=== PATIENT | male | born 1985 | race Caucasian/White ===

== ENCOUNTER → 2019-03-14 09:39 | Outpatient (CLI) | payer OTHER, SELFPAY ==
--- NOTE | 2019-03-14 09:42 | XR_ITS ---
PROCEDURE: XR CHEST 2V CLINICAL HISTORY: smoker Cough and congestion COMPARISON: CXR CHEST(2 VIEWS-NOT PORTABLE) from 02/27/2014 FINDINGS: The cardiomediastinal silhouette and pulmonary vascularity are within normal limits. The lungs are clear without infiltrates, suspicious nodules, or pleural effusions. There is an azygos fissure is a normal variant. No acute bony findings IMPRESSION: No acute findings. Dictated by: Kwabena So MD 03/14/2019 12:08 Electronically signed by Kwabena So MD in [place] 03/14/2019 12:08
--- NOTE | 2019-03-14 09:42 | XR_ITS ---
PROCEDURE: XR HIP RT 2-3V W/PELVIS CLINICAL INDICATION: pain Reported soft tissue mass of the right hip laterally COMPARISON: ABDPELW/O CT ABD PELVIS W/O CONTRAST from 10/25/2012 FINDINGS: The a BB is placed on the palpable abnormality. No radiographic abnormality apparent at this area. CT or MRI may be of further value if there is indeed a palpable abnormality. The right hip itself has an unremarkable bony appearance other than a small bone island in the subcapital region. There are 3 small sclerotic foci of the left supra-acetabular area consistent with small bone islands which were present on 10/25/2012. IMPRESSION: No acute finding. If there indeed a palpable abnormality in the right hip. Then CT or MRI may be of further value Dictated by: Kwabena So MD 03/14/2019 12:02 Electronically signed by Kwabena So MD in [place] 03/14/2019 12:02
[2019-03-14 10:46] LABS: Basophils % 0.5 % (0.1-2.0); Eosinophils # 0.1 K/mm3 (0.0-0.4); Hematocrit 50.6 % (42.0-52.0); Hemoglobin 16.8 g/dL (14.1-18.0); Lymphocytes # 1.4 K/mm3 (0.7-4.5); Lymphocytes % 25.6 % (10-50); Mean Corpuscular HGB Conc 33.2 g/dL (31.8-35.4); Mean Corpuscular Hemoglobin 33.8 pg (27.0-31.2); Mean Corpuscular Volume 101.8 fl (80-94); Mean Platelet Volume 7.8 fl (7.4-10.4); Monocytes # 0.3 K/mm3 (0.1-1.0); Monocytes % 5.6 % (1.7-9.3); Neutrophils # 3.5 K/mm3 (1.8-7.8); Neutrophils % 66.3 % (37.0-80.0); Platelet Count 327 K/mm3 (142-424); Red Blood Count 4.97 M/mm3 (4.60-6.20); Red Cell Distribution Width 12.9 % (11.5-17.5); White Blood Count 5.3 K/mm3 (4.8-10.8)
[2019-03-14 12:16] LABS: Erythrocyte Sedimentation Rate 8 mm/hr (0-15)
[2019-03-14 13:03] LABS: Alanine Aminotransferase 29 U/L (12-78); Albumin Level 4.6 gm/dL (3.4-5.0); Albumin/Globulin Ratio 1.4 (1.1-1.8); Alkaline Phosphatase 89 U/L (46-116); Anion Gap 11.2 mEq/L (5-15); Aspartate Amino Transferase 25 U/L (15-37); Bilirubin,Total 2.3 mg/dL (0.2-1.0); Blood Urea Nitrogen 11 mg/dL (7-18); Calcium 9.7 mg/dL (8.5-10.1); Carbon Dioxide 30 mmol/L (21.0-32.0); Chloride 102 mmol/L (98-107); Chol/HDL Ratio 6.4 (1-3.5); Cholesterol 256 mg/dL (140-200); Creatinine,Serum 0.86 mg/dL (0.70-1.30); Estimated Glomerular Filt Rate 103 ml/min (>60); GFR (African American) 125 ML/MIN (>60); Globulin 3.4 gm/dl (1.3-3.2); Glucose 65 mg/dL (74-106); HDL Cholesterol 40 mg/dL (27-67); LDL Cholesterol 200 mg/dL (0-130); Potassium 4.2 mmoL/L (3.5-5.1); Sodium 139 mmol/L (136-145); Thyroid Stimulating Hormone 1.95 uIU/ml (0.358-3.740); Triglycerides 78 mg/dL (30-200); VLDL Cholesterol 16 mg/dL (0-40)
[2019-03-14 13:04] LABS: C-Reactive Protein < 0.2 mg/dL (0.0-0.9)
[2019-03-14 16:36] LABS: Amphetamine/Metha Screen,Urine Negative ng/mL (<1000); Barbiturates Screen,Urine Negative ng/mL (<200); Benzodiazepines Screen,Urine Negative ng/mL (<200); Cannabinoid Screen,Urine Negative ng/mL (<50); Cocaine Screen,Urine Negative ng/mL (<300); Methadone Screen,Urine Negative ng/mL (<300); Opiate Screen,Urine Negative ng/mL (<300); Phencyclidine Screen,Urine Negative ng/mL (<25)
[2019-03-15 09:19] LABS: RA Latex Turbid. 10.2 IU/mL (0.0-13.9); Vitamin D 25 Hydroxy 32.9 ng/mL (30.0-100.0)
[2019-03-15 12:09] LABS: Anti-Centromere B Antibodies <0.2 AI (0.0-0.9); Anti-Jo-1 <0.2 AI (0.0-0.9); Anti-Smith Antibody <0.2 AI (0.0-0.9); Antichromatin Antibodies <0.2 AI (0.0-0.9); Antiscleroderma-70 Antibodies <0.2 AI (0.0-0.9); RNP Antibodies <0.2 AI (0.0-0.9); Sjogren's Anti-SS-A <0.2 AI (0.0-0.9); Sjogren's Anti-SS-B <0.2 AI (0.0-0.9)
[2019-03-15 13:17] LABS: Anti-DNA (DS) Ab Qn <1 IU/mL (0-9)
== END ==
PROVIDERS: PCP Emergency Medicine; Visit Provider Nurse Practitioner Family
DX: F17.200 Nicotine dependence, unspecified, uncomplicated (principal); M25.50 Pain in unspecified joint; R53.83 Other fatigue; Z79.899 Other long term (current) drug therapy
CPT/HCPCS: 36415; 71046; 73502; 80053; 80061; 80305; 82652; 84439; 84443; 85025; 85651; 86140; 86225; 86235; 86431

== ENCOUNTER → 2019-03-21 08:45 | Outpatient (CLI) | payer OTHER, SELFPAY ==
[2019-03-25 18:02] LABS: Free Valproic Acid (Depakote) 1.9
== END ==
PROVIDERS: Visit Provider Nurse Practitioner Family
DX: R56.9 Unspecified convulsions (principal)
CPT/HCPCS: 36415; 80165

== ENCOUNTER → 2019-06-02 14:28 | Outpatient (CLI) | payer OTHER, SELFPAY ==
[2019-06-02 16:15] LABS: Valproic Acid, (Depakene) 73.4 ug/mL (50-100)
== END ==
PROVIDERS: Visit Provider Nurse Practitioner Family
DX: R56.9 Unspecified convulsions (principal); Z51.81 Encounter for therapeutic drug level monitoring
CPT/HCPCS: 36415; 80164

== ENCOUNTER 2019-08-11 17:24 | Emergency (ER) | payer OTHER, SELFPAY ==
[2019-08-11 17:25] VITALS: BP 129/72; PULSE 68; RESP 19; TEMP 36.6; O2SAT 99; BMI 26.8
--- NOTE | 2019-08-11 17:39 | CT_ITS ---
PROCEDURE: CT HEAD/BRAIN WO CON CLINICAL INDICATION: numbness Left-sided numbness, lightheaded COMPARISON: No exams were available for comparison TECHNIQUE: Axial images obtained. All CT scans at the facility use one or more dose reduction, viz: automated exposure control, ma/kV adjustment per patient size (including targeted exams where dose is matched to indication, i.e. head), or iterative reconstruction technique. FINDINGS: No midline shift, mass effect, intracranial hemorrhage, hydrocephalus, or extra-axial fluid collection is evident. There is mild bilateral cerebellar ectopia which may be better evaluated with MRI with sagittal and coronal imaging. The calvarium has an unremarkable appearance. No mastoid effusion. There is mild mucosal thickening of the ethmoid sinuses. IMPRESSION: 1. No acute intracranial findings. 2. Mild bilateral cerebellar ectopia which may be better evaluated with multi planar MRI Dictated by: Kwabena So MD 08/11/2019 20:39 Electronically signed by Kwabena So MD in [place] 08/11/2019 20:39
--- NOTE | 2019-08-11 17:43 | HMH.EDGENADL ---
ED Disposition Clinical Impression: Arm paresthesia, left Disposition: Home Health Service Condition on Discharge: Good Instructions: DI for Numbness/tingling Additional Instructions: Return to the emergency room if numbness returns or if new symptoms such as chest pain, shortness of breath, vision or speech difficulty, weakness. Follow-up with your primary care provider, call tomorrow to arrange appointment. Referrals: Reddy Ott MD [Primary Care Provider] - Forms: Work/School Release - Critical Care Critical Care Time: No Attestation: On , the high probability of a clinically significant, sudden or life threatening deterioration of the following system(s) required my full and direct attention, intervention and personal management. The time I documented below is in addition to time spent performing reported procedures but includes the following listed in this critical care notation. Medical Decision Making - Nael Inquiry Pt receiving controlled substance: No Vital Signs: 08/11/19 17:25 Temperature 97.8 F Temperature Source Oral Pulse Rate [Radial] 68 Respiratory Rate 19 Blood Pressure [Right Arm] 129/72 Blood Pressure Mean [Right Arm] 91 Blood Pressure Source [Right Arm] Automatic Cuff Blood Pressure Position [Right Arm] Sitting 02 Sat by Pulse Oximetry 99 Oxygen Delivery Method Room Air - Lab Data Lab Results 08/11/19 17:49: WBC 5.3, RBC 4.61, Hgb 15.7, Hct 45.3, MCV 98.3 H, MCH 34.0 H, MCHC 34.6, RDW 12.6, Plt Count 272, MPV 8.0, Neut % (Auto) 57.3, Lymph % (Auto) 33.9, [place] % (Auto) 5.3, Eos % (Auto) 2.8, Baso % (Auto) 0.7, Neut # (Auto) 3.1, Lymph # (Auto) 1.8, [place] # (Auto) 0.3, Eos # (Auto) 0.2, Baso # (Auto) 0.0 08/11/19 17:49: Sodium 140, Potassium 3.9, Chloride 103, Carbon Dioxide 30, Anion Gap 10.9, BUN 9, Creatinine 0.80, Estimated Creat Clear 168, Estimated GFR 112, Est GFR ( Amer) 136, Glucose 87, Calcium 9.3, Total Bilirubin 1.4 H, AST 28, ALT 20, Alkaline Phosphatase 57, Troponin I < 0.01, Total Protein 7.4, Albumin 4.5, Globulin 2.9, Albumin/Globulin Ratio 1.6 Result diagrams: 08/11/19 17:49 08/11/19 17:49 Orders (Tests/Meds): ORDERS Category Date Time Status CT head/brain wo con Stat Cat Scan 08/11/19 17:39 Taken Cervical spine XR 3 views [XR cervical spine 3V] Stat Exams 08/11/19 18:16 Taken Chest XR 2 view (NOT portable) [XR chest 2V] Stat Exams 08/11/19 17:47 Taken Troponin I Q3H Lab 08/11/19 20:45 Ordered Troponin I Q3H Lab 08/11/19 23:45 Ordered - Radiology Data #1 Image(s): C-Spine Image Reviewed: Yes I reviewed the patient's radiology image Preliminary Findings: Normal/NAD - CT Data CT Scan: Head Time Received: 18:27 ([facility] fax) ED CT Reviewed: Yes: I have viewed the radiologist's interpretation Findings Narrative: No evidence of an acute infarct - ECG Data Tracing #1 EKG interpreted by Tommie Mirza MD: Rhythm: sinus bradycardia Rate: 58 [place]: normal Ectopy: none Conduction: normal ST Segment Changes: Nonspecific T Wave Changes: Nonspecific Q Waves: none No prior EKGs available for comparison. Medical Decision Narrative: Neg MRI c-spine 2013. 7:00 PM: Given the patient's anatomic distribution of paresthesias, I am most suspicious of cervical radiculopathy. Without chest pain, shortness of breath, nausea, or diaphoresis, I doubt cardiac source and despite the patient's history of a heart attack I cannot find any documentation of such and it seems unlikely given that he did not have a cardiac cath. However, I did discuss further evaluation with a second troponin, but the patient declines and wants to be discharged home. He is remained asymptomatic. General Adult HPI - General Chief complaint: Syncope Stated complaint: Left side numbness Time Seen by Provider: 08/11/19 17:50 Mode of Arrival: Ambulatory Limitations: No Limitations Description of Symptoms (Recalled from ER Triage Doc. by RN): State
--- NOTE | 2019-08-11 17:47 | XR_ITS ---
PROCEDURE: XR CHEST 2V CLINICAL HISTORY: L side numb episode Dizziness, left-sided numbness COMPARISON: CXR CHEST(2 VIEWS-NOT PORTABLE) from 02/27/2014 XR CHEST 2V from 03/14/2019 XR CHEST 2V from 04/16/2019 FINDINGS: The cardiomediastinal silhouette and pulmonary vascularity are within normal limits. The lungs are clear without infiltrates, suspicious nodules, or pleural effusions. There is an azygos fissure as a normal variant. No acute bony anomalies IMPRESSION: No acute findings. Dictated by: Kwabena So MD 08/11/2019 19:51 Electronically signed by Kwabena So MD in [place] 08/11/2019 19:51
--- NOTE | 2019-08-11 17:48 | ECG_ITS ---
APPROVED REPORT Exam: Resting ECG HR:63 bpm ECG Measurements Heart Rate 63 AXES CO 112 P 30 QRSd 88 QRS 20 QT 424 T 39 QTc 433 <Conclusion> Normal sinus rhythm Nonspecific T wave abnormality Abnormal ECG Electronically signed by : Melquiades Ahuja, 08/13/2019 06:48:30
[2019-08-11 17:57] LABS: Basophils % 0.7 % (0.1-2.0); Eosinophils # 0.2 K/mm3 (0.0-0.4); Eosinophils % 2.8 % (0.1-12.0); Hematocrit 45.3 % (42.0-52.0); Hemoglobin 15.7 g/dL (14.1-18.0); Lymphocytes # 1.8 K/mm3 (0.7-4.5); Lymphocytes % 33.9 % (10-50); Mean Corpuscular HGB Conc 34.6 g/dL (31.8-35.4); Mean Corpuscular Volume 98.3 fl (80-94); Monocytes # 0.3 K/mm3 (0.1-1.0); Monocytes % 5.3 % (1.7-9.3); Neutrophils # 3.1 K/mm3 (1.8-7.8); Neutrophils % 57.3 % (37.0-80.0); Platelet Count 272 K/mm3 (142-424); Red Blood Count 4.61 M/mm3 (4.60-6.20); Red Cell Distribution Width 12.6 % (11.5-17.5); White Blood Count 5.3 K/mm3 (4.8-10.8)
[2019-08-11 18:02] LABS: Chloride 103 mmol/L (98-107); Potassium 3.9 mmoL/L (3.5-5.1); Sodium 140 mmol/L (136-145)
[2019-08-11 18:04] LABS: Alanine Aminotransferase 20 U/L (12-78); Alkaline Phosphatase 57 U/L (38-126); Anion Gap 10.9 mEq/L (5-15); Aspartate Amino Transferase 28 U/L (17-59); Bilirubin,Total 1.4 mg/dl (0.2-1.3); Blood Urea Nitrogen 9 mg/dl (9-20); Carbon Dioxide 30 mmol/L (22.0-30.0); Creatinine Clearance Estimated 168 mL/min (50-200); Estimated Glomerular Filt Rate 112 ml/min (>60); GFR (African American) 136 ML/MIN (>60)
[2019-08-11 18:05] LABS: Albumin Level 4.5 g/dl (3.5-5.0); Albumin/Globulin Ratio 1.6 (1.1-1.8); Calcium 9.3 mg/dl (8.4-10.2); Globulin 2.9 g/dL (1.3-3.2); Glucose 87 mg/dl (74-100); Total Protein,Serum 7.4 g/dl (6.3-8.2)
--- NOTE | 2019-08-11 18:16 | XR_ITS ---
PROCEDURE: XR CERVICAL SPINE 3V CLINICAL INDICATION: L arm and chest numbness Left arm pain and numbness COMPARISON: No exams were available for comparison FINDINGS: There is straightening/reversal of the normal lordosis which may be due to patient positioning or muscle spasm. The disc spaces are well preserved. No fracture or dislocation. No lytic or blastic change. No evidence of cervical rib or prevertebral soft tissue swelling. IMPRESSION: There is reversal of the normal lordosis which may be due to patient positioning or muscle spasm. Otherwise negative Dictated by: Kwabena So MD 08/11/2019 20:33 Electronically signed by Kwabena So MD in [place] 08/11/2019 20:33
[2019-08-11 18:21] LABS: Troponin I < 0.01 ng/ml (0.00-0.034)
[2019-08-11 19:14] VITALS: BP 122/66; PULSE 61; RESP 17; TEMP 36.7; O2SAT 97
== END 2019-08-11 19:19 | disposition home health service (06) ==
PROVIDERS: Emergency Provider Emergency Medicine; PCP Emergency Medicine
DX: R20.2 Paresthesia of skin (principal); F41.8 Other specified anxiety disorders; J44.9 Chronic obstructive pulmonary disease, unspecified; R56.9 Unspecified convulsions; Z88.0 Allergy status to penicillin; Z88.6 Allergy status to analgesic agent; Z88.8 Allergy status to other drugs, medicaments and biological substances
CPT/HCPCS: 70450; 71046; 72040; 80053; 84484; 85025; 93005; 99283

== ENCOUNTER 2019-11-08 12:21 | Emergency (ER) | payer OTHER, SELFPAY ==
[2019-11-08 12:30] VITALS: BP 117/73; PULSE 60; RESP 16; TEMP 36.6; O2SAT 100; BMI 23.8
--- NOTE | 2019-11-08 13:12 | HMH.EDGENADL ---
ED Disposition Clinical Impression: Diarrhea of presumed infectious origin, Food sensitivity with gastrointestinal symptoms Disposition: Home, Self-Care Condition on Discharge: Good Instructions: Diarrhea Referrals: Reddy Ott MD [Primary Care Provider] - Time of Disposition: 14:06 - Critical Care Critical Care Time: No Attestation: On 11/08/19, the high probability of a clinically significant, sudden or life threatening deterioration of the following system(s) required my full and direct attention, intervention and personal management. The time I documented below is in addition to time spent performing reported procedures but includes the following listed in this critical care notation. Medical Decision Making - Medical Records Medical records reviewed: Yes: I reviewed the patient's medical records. - Nael Inquiry Pt receiving controlled substance: No Vital Signs: 11/08/19 12:30 Temperature 97.9 F Temperature Source Oral Pulse Rate [Right Brachial] 60 Respiratory Rate 16 Blood Pressure [Right Arm] 117/73 Blood Pressure Mean [Right Arm] 87 Blood Pressure Source [Right Arm] Automatic Cuff Blood Pressure Position [Right Arm] Sitting 02 Sat by Pulse Oximetry 100 Oxygen Delivery Method Room Air - Lab Data Lab Results 11/08/19 13:24: Sodium 138, Potassium 3.9, Chloride 101, Carbon Dioxide 28, Anion Gap 12.9, BUN 11, Creatinine 1.00, Estimated Creat Clear 120, Estimated GFR 87, Est GFR ( Amer) 105, Glucose 102 H, Calcium 9.4, Total Bilirubin 1.2, AST 29, ALT 17, Alkaline Phosphatase 77, Total Protein 7.4, Albumin 4.6, Globulin 2.8, Albumin/Globulin Ratio 1.6 Result diagrams: 11/08/19 13:24 Orders (Tests/Meds): ED MEDICATIONS Discontinued Medications Generic Name Dose Route Start Last Admin Trade Name Freq PRN Reason Stop Dose Admin Sodium Chloride 1,000 mls @ 999 mls/hr 11/08/19 13:00 11/08/19 13:19 Sod Chlor 0.9% 1000ml Bag IV 11/08/19 14:00 999 mls/hr .Q1H1M BEAR Administration Medical Decision Narrative: In summary this is a 33-year-old male presenting to the emergency department with generalized weakness and diarrhea. Patient is in no distress on arrival. Vital signs are stable. Differential diagnoses include inflammatory diarrhea, infectious diarrhea, food sensitivity. Diarrhea has been present for less than 24 hours. No current associated pain. Doubt acute surgical abdomen. Plan to obtain CBC, CMP. Patient given IV fluid bolus. Results are generally unremarkable. No electrolyte derangements. No acute kidney injury. Patient has not had any episodes of diarrhea while in the emergency department. Doubt infectious diarrhea. After IV fluids he was feeling much better. Counseled that he may take Tums or Pepto-Bismol at home. He should try a food elimination diet and follow-up with his primary care physician. May need repeat endoscopy. Given return precautions. Stable for discharge. General Adult HPI - General Chief complaint: Weakness Stated complaint: diarrhea Time Seen by Provider: 11/08/19 12:42 Mode of Arrival: Ambulatory Limitations: No Limitations Description of Symptoms (Recalled from ER Triage Doc. by RN): Diarrhea for 24 hours - History of Present Illness HPI narrative: 33-year-old male presenting to the emergency department with diarrhea and generalized weakness. Symptoms started last night. He had multiple episodes of lower abdominal cramping and watery diarrhea overnight. Pain has mostly resolved, but he now feels generally weak and fatigued. No focal numbness or weakness. No fevers or chills. No blood or mucus in his stool. He has lactose intolerance, and has had unremarkable colonoscopies in the past. He ate macaroni and cheese yesterday. Also ate tacos from a gas station. [place] bad almost immediately after that. He has taken Tums and Pepto-Bismol at home with minimal relief. - Related Data Home Medications Medicati
[2019-11-08 13:41] LABS: Alanine Aminotransferase 17 U/L (12-78); Albumin Level 4.6 g/dl (3.5-5.0); Albumin/Globulin Ratio 1.6 (1.1-1.8); Alkaline Phosphatase 77 U/L (38-126); Anion Gap 12.9 mEq/L (5-15); Aspartate Amino Transferase 29 U/L (17-59); Bilirubin,Total 1.2 mg/dl (0.2-1.3); Blood Urea Nitrogen 11 mg/dl (9-20); Calcium 9.4 mg/dl (8.4-10.2); Carbon Dioxide 28 mmol/L (22.0-30.0); Chloride 101 mmol/L (98-107); Creatinine Clearance Estimated 120 mL/min (50-200); Estimated Glomerular Filt Rate 87 ml/min (>60); GFR (African American) 105 ML/MIN (>60); Globulin 2.8 g/dL (1.3-3.2); Glucose 102 mg/dl (74-100); Potassium 3.9 mmoL/L (3.5-5.1); Sodium 138 mmol/L (136-145); Total Protein,Serum 7.4 g/dl (6.3-8.2)
[2019-11-08 14:21] VITALS: BP 132/74; PULSE 88; RESP 16; TEMP 36.6; O2SAT 98
== END 2019-11-08 14:22 | disposition home or self-care (01) ==
PROVIDERS: Emergency Provider Emergency Medicine; PCP Emergency Medicine
DX: R19.7 Diarrhea, unspecified (principal); T78.1XXA Other adverse food reactions, not elsewhere classified, initial encounter; F41.8 Other specified anxiety disorders; F31.9 Bipolar disorder, unspecified; E78.5 Hyperlipidemia, unspecified; J44.9 Chronic obstructive pulmonary disease, unspecified; F17.210 Nicotine dependence, cigarettes, uncomplicated; Z88.0 Allergy status to penicillin; Z88.8 Allergy status to other drugs, medicaments and biological substances; Z79.899 Other long term (current) drug therapy
CPT/HCPCS: 80053; 96365; 99282

== ENCOUNTER 2019-12-21 02:30 | Emergency (ER) | payer OTHER, SELFPAY ==
[2019-12-21 02:34] VITALS: BP 118/82; RESP 18; TEMP 36.6; O2SAT 98; BMI 24.4
--- NOTE | 2019-12-21 03:21 | CT_ITS ---
PROCEDURE: CT HEAD/BRAIN WO CON CLINICAL INDICATION: right sided numbness Right-sided numbness with tingling in right shoulder and right and right leg COMPARISON: CT CT HEAD/BRAIN WO CON from 08/11/2019 TECHNIQUE: Axial images obtained. All CT scans at the facility use one or more dose reduction, viz: automated exposure control, ma/kV adjustment per patient size (including targeted exams where dose is matched to indication, i.e. head), or iterative reconstruction technique. FINDINGS: No midline shift, mass effect, intracranial hemorrhage, hydrocephalus, or extra-axial fluid collection is evident. The calvarium has an unremarkable appearance. No mastoid effusion. There is mild opacification of the ethmoid sinuses. IMPRESSION: No acute intracranial finding Dictated by: Kwabena So MD 12/21/2019 05:53 Kwabena oS MD in [place] 12/21/2019 05:53
--- NOTE | 2019-12-21 03:22 | CT_ITS ---
PROCEDURE: CT CERVICAL SPINE WO CON CLINICAL INDICATION: right sided numbness Right upper extremity numbness and tingling COMPARISON: No exams were available for comparison TECHNIQUE: Axial images obtained with sagittal and coronal reformats. All CT scans at the facility use one or more dose reduction, viz: automated exposure control, ma/kV adjustment per patient size (including targeted exams where dose is matched to indication, i.e. head), or iterative reconstruction technique. Axial spiral CT scanning performed of the cervical spine beginning at the base of the skull and continuing to the upper T-spine. 3-D multiplanar reconstruction with 3-D manipulation of volumetric data set in image rendering was completed by the radiologist and/or technologist with the supervision of the radiologist on independent workstation. FINDINGS: Normal alignment. No fracture or dislocation. No lytic blastic change there is mild decrease in the disc space at C5-C6 and C6-C7 suggesting mild degenerative disc disease. No bony canal stenosis or significant hypertrophic change. Lung apices are clear. Scattered small nodes are present in the neck. IMPRESSION: No acute finding. Slight decrease in the disc space at C5-C6 and C6-C7 suggesting mild degenerative disc disease Dictated by: Kwabena So MD 12/21/2019 05:57 Kwabena So MD in [place] 12/21/2019 05:57
--- NOTE | 2019-12-21 03:22 | ECG_ITS ---
APPROVED REPORT Exam: Resting ECG HR:78 bpm ECG Measurements Heart Rate 78 AXES CA 112 P 65 QRSd 92 QRS 89 QT 376 T 58 QTc 428 <Conclusion> Normal sinus rhythm Nonspecific ST-T wave abnormalities Abnormal ECG Electronically signed by : David Noonan, 12/25/2019 13:08:38
--- NOTE | 2019-12-21 03:22 | XR_ITS ---
PROCEDURE: XR CHEST 2V CLINICAL HISTORY: cough Cough knee seen and shortness of COMPARISON: CR XR CHEST 2V from 03/14/2019 CR XR CHEST 2V from 04/16/2019 CR XR CHEST 2V from 08/11/2019 FINDINGS: The cardiomediastinal silhouette and pulmonary vascularity are within normal limits. There is a mild pectus deformity with resultant increased density in the right hilar region. There is an azygos fissure as a normal variant. No lobar consolidation or collapse. On the lateral view there is a vague nodular opacity overlying the T9 vertebral body which may be due to summation artifact may be confirmed with follow-up. No acute bony abnormalities. IMPRESSION: No acute finding. Nonspecific nodular opacity overlying T9 vertebral body which could be due to summation density. Stability may be confirmed with follow-up to exclude underlying developing nodule Dictated by: Kwabena So MD 12/21/2019 05:34 Kwabena So MD in [place] 12/21/2019 05:34
[2019-12-21 03:29] LABS: Microscopic, Urine URINE MICROSCOPIC (MICROSCOPIC)
[2019-12-21 03:34] LABS: Chloride 102 mmol/L (98-107)
[2019-12-21 03:35] LABS: Potassium 3.7 mmoL/L (3.5-5.1); Sodium 141 mmol/L (136-145)
[2019-12-21 03:36] LABS: Appearance,Urine CLEAR (Clear); Blood, Urine Negative (Negative); Color,Urine DK YELLOW (Yellow); Glucose,Urine (UA) Negative (Negative); Ketones,Urine TRACE (Negative); Leukocyte Esterase,Urine Negative (Negative); Nitrate,Urine Negative (Negative); Protein,Urine 1+ (Negative); Specific Gravity, Urine 1.025 (1.005-1.030)
[2019-12-21 03:37] LABS: Alanine Aminotransferase 16 U/L (12-78); Alkaline Phosphatase 81 U/L (38-126); Aspartate Amino Transferase 28 U/L (17-59); Basophils % 0.6 % (0.1-2.0); Bilirubin,Total 1.6 mg/dl (0.2-1.3); Blood Urea Nitrogen 12 mg/dl (9-20); Creatinine Clearance Estimated 121 mL/min (50-200); Eosinophils # 0.1 K/mm3 (0.0-0.4); Eosinophils % 2.4 % (0.1-12.0); Estimated Glomerular Filt Rate 86 ml/min (>60); GFR (African American) 104 ML/MIN (>60); Hematocrit 46.9 % (42.0-52.0); Hemoglobin 16.3 g/dL (14.1-18.0); Lymphocytes # 1.7 K/mm3 (0.7-4.5); Lymphocytes % 27.9 % (10-50); Mean Corpuscular HGB Conc 34.7 g/dL (31.8-35.4); Mean Corpuscular Hemoglobin 33.9 pg (27.0-31.2); Mean Corpuscular Volume 97.7 fl (80-94); Mean Platelet Volume 7.5 fl (7.4-10.4); Monocytes # 0.4 K/mm3 (0.1-1.0); Monocytes % 6.1 % (1.7-9.3); Neutrophils # 3.7 K/mm3 (1.8-7.8); Platelet Count 233 K/mm3 (142-424); Red Cell Distribution Width 12.5 % (11.5-17.5); White Blood Count 5.9 K/mm3 (4.8-10.8)
[2019-12-21 03:38] LABS: Albumin Level 4.5 g/dl (3.5-5.0); Albumin/Globulin Ratio 1.5 (1.1-1.8); Anion Gap 12.7 mEq/L (5-15); Calcium 10.1 mg/dl (8.4-10.2); Carbon Dioxide 30 mmol/L (22.0-30.0); Globulin 3.1 g/dL (1.3-3.2); Glucose 102 mg/dl (74-100); Total Protein,Serum 7.6 g/dl (6.3-8.2)
[2019-12-21 03:39] LABS: Bilirubin,Urine Negative (Negative)
[2019-12-21 03:49] LABS: Barbiturates Screen,Urine Negative ng/ml (<200); Benzodiazepines Screen,Urine Negative ng/ml (<200)
[2019-12-21 03:50] LABS: Cannabinoid Screen,Urine Negative ng/ml (<50)
[2019-12-21 03:51] LABS: Cocaine Screen,Urine Negative ng/ml (<300); Methadone Screen,Urine Negative ng/ml (<300)
[2019-12-21 03:52] LABS: Opiate Screen,Urine Negative ng/ml (<300)
[2019-12-21 03:53] LABS: Phencyclidine Screen,Urine Negative ng/ml (<25)
[2019-12-21 04:01] LABS: Bacteria,Urine 1+ /lpf; Mucus,Urine 1+ /lpf
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
[2019-12-21 05:18] VITALS: BP 116/73; PULSE 81; RESP 16; TEMP 36.8; O2SAT 97
[2019-12-25 21:12] LABS: Amphetamine Positive (.); Amphetamines Positive (.); Methamphetamine Positive (.)
[2019-12-26 11:16] LABS: Amphetamine (GC/MS) 6864 ng/mL (Cutoff=500); Methamphetamine (GC/MS) >4000 ng/mL (Cutoff=500)
== END 2019-12-21 05:21 | disposition home or self-care (01) ==
PROVIDERS: Emergency Provider Emergency Medicine; PCP Emergency Medicine
DX: J45.901 Unspecified asthma with (acute) exacerbation (principal); J44.9 Chronic obstructive pulmonary disease, unspecified; F41.8 Other specified anxiety disorders; E78.5 Hyperlipidemia, unspecified; Z79.899 Other long term (current) drug therapy; F19.11 Other psychoactive substance abuse, in remission; Z91.040 Latex allergy status; F17.210 Nicotine dependence, cigarettes, uncomplicated
CPT/HCPCS: 70450; 71046; 72125; 80053; 80305; 80324; 81001; 85025; 93005; 99283

== ENCOUNTER → 2020-01-31 13:43 | Outpatient (CLI) | payer OTHER, SELFPAY ==
[2020-01-31 14:44] LABS: Basophils % 0.7 % (0.1-2.0); Eosinophils # 0.1 K/mm3 (0.0-0.4); Eosinophils % 2.8 % (0.1-12.0); Hematocrit 46.9 % (42.0-52.0); Hemoglobin 15.7 g/dL (14.1-18.0); Lymphocytes % 39.2 % (10-50); Mean Corpuscular HGB Conc 33.4 g/dL (31.8-35.4); Mean Corpuscular Hemoglobin 32.7 pg (27.0-31.2); Mean Corpuscular Volume 97.9 fl (80-94); Mean Platelet Volume 7.6 fl (7.4-10.4); Monocytes # 0.3 K/mm3 (0.1-1.0); Neutrophils # 2.7 K/mm3 (1.8-7.8); Neutrophils % 52.3 % (37.0-80.0); Platelet Count 242 K/mm3 (142-424); Red Blood Count 4.79 M/mm3 (4.60-6.20); Red Cell Distribution Width 12.6 % (11.5-17.5); White Blood Count 5.2 K/mm3 (4.8-10.8)
[2020-01-31 15:44] LABS: Coronavirus 19 IgG Antibody Negative (Negative); Coronavirus 19 IgM Antibody Negative (Negative)
[2020-01-31 16:31] LABS: Chloride 104 mmol/L (98-107); Potassium 4.7 mmoL/L (3.5-5.1); Sodium 144 mmol/L (136-145)
[2020-01-31 16:34] LABS: Blood Urea Nitrogen 15 mg/dl (9-20); Estimated Glomerular Filt Rate 97 ml/min (>60); GFR (African American) 118 ML/MIN (>60)
[2020-01-31 16:35] LABS: Anion Gap 13.7 mEq/L (5-15); Calcium 9.5 mg/dl (8.4-10.2); Carbon Dioxide 31 mmol/L (22.0-30.0); Glucose 92 mg/dl (74-100)
== END ==
PROVIDERS: Visit Provider Surgery
DX: Z01.89 Encounter for other specified special examinations (principal); D17.9 Benign lipomatous neoplasm, unspecified
CPT/HCPCS: 36415; 80048; 85025; 86328

== ENCOUNTER 2020-02-01 06:13 | Day surgery (SDC) | payer OTHER, SELFPAY ==
[2020-01-31 10:28] VITALS: BMI 25.0
[2020-02-01] VITALS (12 sets, daily range): BP systolic 102–128; BP diastolic 47–84; PULSE 60–78; RESP 12–18; TEMP 36.4–43; O2SAT 95–100
--- NOTE | 2020-02-01 07:33 | P.PN_ITS ---
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 Consent for Planned Operative Procedure(s) Verified: Yes - Additional verifications Anesthesia Reactions: No Hx Blood Transfusions: No - Airway Assessment C-Spine Mobility Assessed: Yes TMJ Mobility Assessed: Yes Dentition: Poor Dentition - Neurological Assessment Level of Consciousness: Awake, Alert, Appropriate - Anesthesia Plan Anesthesia Risk discussed: Yes Anesthesia Plan: Verified ASA Class: III Anesthesia Type: General [facility] History I have reviewed the patient's past medical history: Yes Medical History: Reports:: Anxiety, Asthma, Chronic Obstructive Pulmonary Disease (COPD), Depression, Hyperlipidemia, Seizures Denies:: Cancer, Diabetes Mellitus Type 1, Diabetes Mellitus Type 2, Internal Pacemaker, MRSA *Have you ever received a pneumonia vaccine?: No *Have you received a flu vaccine this season?: Yes Other Medical History: Reports: Other (RLS,back pain) Anesthesia experience/problems:: none Laterality Cases: Bilateral: Other Other Surgeries: Yes: Other (knuckles replaced). No: Pacemaker Amputation: No Fractures: Yes - *Social History Last grade of school completed: High school graduate Smoking Status: Current every day smoker Tobacco Type: cigarettes # Packs/Day (cigarettes): 1 Alcohol Intake: never Substance Use Type: former substance user *Occupational Status:: unemployed Housing: house Household Members: spouse *Travel in the last 8 weeks: None - Psychiatric History Pschychiatric History:: Reports:: Anxiety, Depression Family Hx:: Asthma, Cancer, Heart Attack, Hypertension, Kidney Disease, Stroke, Mental illness
--- NOTE | 2020-02-01 07:57 | P.OP_ITS ---
Date of procedure: 02/01/20 Pre-op Diagnosis:: Lipoma, right lower extremity Post-op Diagnosis:: Same Procedure performed:: Excision of lipoma from right lower extremity with intermediate complexity closure Surgeon:: Marcelo Gambino MD [place] Floors Installer(s):: None INTERPERSONAL COMMUNICATIONS PROFESSOR:: Gerardo Gutierrez Anesthesia: LMA Estimated blood loss (mL): 5 Operative findings:: Consistent with lobulated well-circumscribed benign subcutaneous lipoma Operative note:: Patient was taken to the operating room. He was positioned in supine position. Anesthesia was induced via LMA. Area was prepped and draped. Skin was marked with a skin marker for planned incision along the length of the palpable lipoma. There was a focal area of minor skin changes and this was excised as an ellipse. Skin incision was made. Dissection was carried down through dermis using electrocautery. Well-circumscribed lobular lipoma was encountered. This was able to be delivered and dissected free from surrounding tissues using electrocautery. It was rather superficial in the superficial subcutaneous tissues. It was sent off as a specimen with the overlying skin ellipse. There was good hemostasis. Local anesthetic was infiltrated into the subcutaneous tissues regionally around the wound. Subdermal tissues were closed with multiple interrupted 2-0 Vicryl sutures. Skin was closed with 4-0 Monocryl in a subcuticular fashion. Clean dry sterile dressing was applied. Condition: stable Disposition: PACU Complications:: None immediately apparent
--- NOTE | 2020-02-01 08:00 | HMH.ANESI ---
[facility] Anesthesia Record Part I Intake, IV Amount: 800 Estimated blood loss (mL): 0 Urine output (mL): 0 Blood Pressure: 127/64 SaO2: 95 Pulse Rate: 63 Respiratory Rate: 12 Temperature: 98 F Patient is:: Awake, Stable Stable to PACU at:: 08:00
--- NOTE | 2020-02-01 08:43 | PC.NURSE ---
0833-detailed report called to DARIAN Hilario 0835-pt transported to post op via stretcher w/cara rails up and left in care of DARIAN Hilario, vss, pt stable
--- NOTE | 2020-02-01 12:43 | HMH.ANESII ---
[facility] Anesthesia Record Part II Discharge Time: 08:30 Destination: [facility] PACU nurse assessment reviewed?: Yes Patient Condition:: Good Anesthesia Complications:: None Swallowing reflex intact?: Yes Cyanosis?: No Blood Pressure: 114/47 Pulse Rate: 71 Temperature: 98.0 F Mental Status: Alert & Oriented Pain level:: 6 Nausea and/or vomitting:: None Intake, IV Amount: 1,000
== END 2020-02-01 09:14 | disposition home or self-care (01) ==
LOC: OR 06:14
PROVIDERS: PCP Emergency Medicine; Visit Provider Surgery
PROC: (CPT 11406; principal; 2020-02-01 07:30)
DX: D17.23 Benign lipomatous neoplasm of skin and subcutaneous tissue of right leg (principal); J44.9 Chronic obstructive pulmonary disease, unspecified; E78.5 Hyperlipidemia, unspecified; R56.9 Unspecified convulsions; Z72.0 Tobacco use; F19.11 Other psychoactive substance abuse, in remission; Z82.49 Family history of ischemic heart disease and other diseases of the circulatory system; Z82.3 Family history of stroke; Z82.5 Family history of asthma and other chronic lower respiratory diseases; Z80.9 Family history of malignant neoplasm, unspecified; Z88.0 Allergy status to penicillin; Z88.8 Allergy status to other drugs, medicaments and biological substances
CPT/HCPCS: 11406; 12031; 96374; J2405

== ENCOUNTER → 2020-04-12 17:58 | Outpatient (CLI) | payer OTHER, SELFPAY | PROVIDERS: Visit Provider Nurse Practitioner Family | DX: R10.9 Unspecified abdominal pain (principal); J02.9 Acute pharyngitis, unspecified | CPT/HCPCS: 87086 ==

== ENCOUNTER → 2020-05-25 08:20 | Outpatient (CLI) | payer OTHER, SELFPAY ==
--- NOTE | 2020-05-25 08:20 | FL_ITS ---
PROCEDURE: FL BARIUM SWALLOW CLINICAL INDICATION: Swallowing difficulties COMPARISON: No exams were available for comparison TECHNIQUE: In the upright position the patient was observed to swallow barium in both the AP and lateral view. The cervical esophagus was examined under fluoroscopy with images obtained. The patient was then placed prone in the right anterior oblique position and was observed to swallow barium with Valsalva technique . FLUOROSCOPY TIME: 50 seconds FINDINGS: There was no evidence of aspiration. There was normal peristalsis. No filling defects or mucosal abnormalities. No masses or strictures. No evidence of hiatal hernia or reflux. IMPRESSION: Negative barium swallow. Dictated by: Kwabena So MD 05/25/2020 11:40 Kwabena So MD in [place] 05/25/2020 11:40
--- NOTE | 2020-05-25 08:20 | US_ITS ---
PROCEDURE: US ABDOMEN COMPLETE CLINICAL INDICATION: Abd pain COMPARISON: No exams were available for comparison FINDINGS: PANCREAS: Unremarkable. No obvious mass or abnormal fluid collection. No ductal dilatation LIVER: No focal liver lesions demonstrated. Homogeneous echogenicity. No intrahepatic biliary ductal dilatation evident. There is appropriate direction of blood flow within a non dilated portal vein RIGHT KIDNEY: Unremarkable. Normal size and echogenicity. No hydronephrosis LEFT KIDNEY: Unremarkable. Normal size and echogenicity. No hydronephrosis GALLBLADDER: No gallstones, gallbladder wall thickening, pericholecystic fluid, or biliary dilatation. AORTA: No evidence of aneurysmal dilatation. SPLEEN: Unremarkable. Normal size and echogenicity ASCITES: None demonstrated. IMPRESSION: Unremarkable abdominal ultrasound Dictated by: Kwabena So MD 05/25/2020 14:20 Kwabena So MD in [place] 05/25/2020 14:20
== END ==
PROVIDERS: PCP Nurse Practitioner Family; Visit Provider Nurse Practitioner Family
DX: R10.9 Unspecified abdominal pain (principal); R13.10 Dysphagia, unspecified
CPT/HCPCS: 74220; 76700

== ENCOUNTER → 2020-12-11 17:10 | Outpatient (CLI) | payer OTHER, SELFPAY ==
[2020-12-11 18:47] LABS: Alanine Aminotransferase 19 U/L (12-78); Albumin Level 4.5 g/dl (3.5-5.0); Albumin/Globulin Ratio 1.7 (1.1-1.8); Alkaline Phosphatase 68 U/L (38-126); Aspartate Amino Transferase 25 U/L (17-59); Bilirubin,Total 1.2 mg/dl (0.2-1.3); Blood Urea Nitrogen 5 mg/dl (9-20); Calcium 9.2 mg/dl (8.4-10.2); Carbon Dioxide 27 mmol/L (22.0-30.0); Chloride 104 mmol/L (98-107); Estimated Glomerular Filt Rate 130 ml/min (>60); GFR (African American) 157 ML/MIN (>60); Globulin 2.7 g/dL (1.3-3.2); Glucose 90 mg/dl (74-100); Sodium 142 mmol/L (136-145); Total Protein,Serum 7.2 g/dl (6.3-8.2)
[2020-12-11 19:53] LABS: Vitamin B12 442 pg/mL (239-931)
[2020-12-11 20:21] LABS: Folate 4.84 ng/mL
[2021-01-01 10:33] LABS: Free Valproic Acid (Depakote) 4.1
== END ==
PROVIDERS: Visit Provider Nurse Practitioner Family
DX: R56.9 Unspecified convulsions (principal)
CPT/HCPCS: 80053; 80165; 82607; 82746

== ENCOUNTER → 2021-03-06 18:26 | Outpatient (CLI) | payer OTHER, SELFPAY ==
[2021-03-06 18:28] LABS: Coronavirus 19, PCR Not Detected (NotDetected); Influenza A, PCR Not Detected (NotDetected); Influenza B, PCR Not Detected (NotDetected)
== END ==
PROVIDERS: Visit Provider Nurse Practitioner Family
DX: Z20.822 Contact with and (suspected) exposure to COVID-19 (principal); R11.10 Vomiting, unspecified; R19.7 Diarrhea, unspecified; R51.9 Headache, unspecified
CPT/HCPCS: C9803; U0003; U0005

== ENCOUNTER 2021-04-09 15:08 | Emergency (ER) | payer OTHER, SELFPAY ==
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
[2021-04-09 15:19] VITALS: BMI 25.0
[2021-04-09 15:20] VITALS: BP 119/79; PULSE 54; RESP 17; TEMP 36.7; O2SAT 100; BMI 25.0
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
[2021-04-09 15:28] VITALS: BP 111/79; PULSE 61; RESP 17; O2SAT 100
[2021-04-09 16:13] VITALS: BP 112/85; PULSE 59; RESP 17; TEMP 36.7; O2SAT 99
== END 2021-04-09 16:15 | disposition home or self-care (01) ==
PROVIDERS: Emergency Provider Emergency Medicine; PCP Emergency Medicine
DX: S09.93XA Unspecified injury of face, initial encounter (principal); Y04.2XXA Assault by strike against or bumped into by another person, initial encounter; F41.8 Other specified anxiety disorders; F31.9 Bipolar disorder, unspecified; E78.5 Hyperlipidemia, unspecified; J44.9 Chronic obstructive pulmonary disease, unspecified; F17.210 Nicotine dependence, cigarettes, uncomplicated
CPT/HCPCS: 70150; 99282

== ENCOUNTER 2022-01-16 18:03 | Emergency (ER) | payer OTHER, SELFPAY ==
[2022-01-16 18:05] VITALS: BP 122/77; PULSE 81; RESP 16; TEMP 36.6; O2SAT 97; BMI 25.0
--- NOTE | 2022-01-16 18:21 | EXP.UTC ---
Discharge Plan Disposition Patient Disposition: Home, Self-Care Condition: Good Prescriptions Prescriptions: New methylprednisolone 4 mg Tablets,Dose Pack 4 mg PO DIRECTED Qty: 21 0RF No Action budesonide-formoterol 80-4.5 mcg/actuation HFA aerosol inhaler 2 puff INHALATION BID Qty: 10.2 2RF ondansetron 4 mg tablet,disintegrating See Rx Instructions .ROUTE .COMPLEX Qty: 20 3RF Dose Instruction: DISSOLVE 1 TABLET ON THE TONGUE EVERY 8 HOURS NEEDED FOR NAUSEA AND VOMITING Rx Instructions: DISSOLVE 1 TABLET ON THE TONGUE EVERY 8 HOURS NEEDED FOR NAUSEA AND VOMITING pantoprazole [Protonix] 40 mg tablet,delayed release (DR/EC) 40 mg PO DAILY Qty: 90 3RF dicyclomine 20 mg tablet 20 mg PO TID PRN (Reason: abdominal pain) Qty: 180 4RF bisacodyl 5 mg tablet 5 mg PO HS 2 Days Qty: 2 0RF propranolol 80 mg capsule,extended release 24 hr See Rx Instructions .ROUTE .COMPLEX Qty: 30 3RF Dose Instruction: TAKE ONE CAPSULE BY MOUTH ONCE A DAY Rx Instructions: TAKE ONE CAPSULE BY MOUTH ONCE A DAY Ubrelvy 100 mg tablet 100 mg PO ONCE Qty: 10 1RF Rx Instructions: Sumatrip not effective cyclobenzaprine 10 mg tablet 10 mg PO TID PRN (Reason: muscle spasm) Qty: 60 0RF sulfamethoxazole-trimethoprim 800-160 mg tablet 1 tab PO BID 10 Days Qty: 20 0RF (DME) Blood Glucose Test Strip See Rx Instructions .ROUTE .MEDSUPPLY Qty: 50 12RF Rx Instructions: As directed (DME) lancets [Droplet Lancets] 30 gauge misc See Rx Instructions .ROUTE .MEDSUPPLY Qty: 200 12RF Rx Instructions: As directed albuterol sulfate 90 mcg/actuation HFA aerosol inhaler See Rx Instructions .Route .COMPLEX Qty: 18 10RF Rx Instructions: INHALE 1 PUFF BY MOUTH EVERY 4 TO 6 HOURS NEEDED FOR SHORTNESS OF BREATH OR WHEEZING amitriptyline 25 mg tablet See Rx Instructions .ROUTE .COMPLEX Qty: 30 3RF Dose Instruction: TAKE ONE TABLET BY MOUTH AT BEDTIME FOR INSOMNIA Rx Instructions: TAKE ONE TABLET BY MOUTH AT BEDTIME FOR INSOMNIA divalproex 500 mg tablet extended release 24 hr See Rx Instructions .ROUTE .COMPLEX Qty: 60 3RF Dose Instruction: TAKE ONE TABLET BY MOUTH 2 TIMES A DAY Rx Instructions: TAKE ONE TABLET BY MOUTH 2 TIMES A DAY atorvastatin 20 mg tablet See Rx Instructions .ROUTE .COMPLEX Qty: 90 3RF Dose Instruction: TAKE ONE TABLET BY MOUTH EVERY NIGHT AT BEDTIME FOR CHOLESTEROL Rx Instructions: TAKE ONE TABLET BY MOUTH EVERY NIGHT AT BEDTIME FOR CHOLESTEROL (DME) blood-glucose meter [Blood Glucose Monitoring] Kit See Rx Instructions .ROUTE .MEDSUPPLY Qty: 1 0RF Rx Instructions: As directed acetaminophen [Tylenol] 325 mg tablet 325 mg PO QID PRN (Reason: pain) Qty: 60 5RF fluticasone propionate 50 mcg/actuation spray,suspension See Rx Instructions .ROUTE .COMPLEX Qty: 16 3RF Dose Instruction: USE 2 SPRAYS IN EACH NOSTRIL EVERY DAY FOR ALLERGY SYMPTOMS Rx Instructions: USE 2 SPRAYS IN EACH NOSTRIL EVERY DAY FOR ALLERGY SYMPTOMS quetiapine 100 mg tablet See Rx Instructions .ROUTE .COMPLEX Qty: 30 3RF Dose Instruction: TAKE ONE TABLET BY MOUTH EVERY NIGHT AT BEDTIME FOR ANXIETY Rx Instructions: TAKE ONE TABLET BY MOUTH EVERY NIGHT AT BEDTIME FOR ANXIETY buspirone 15 mg tablet See Rx Instructions .ROUTE .COMPLEX Qty: 60 3RF Dose Instruction: TAKE ONE TABLET BY MOUTH 2 TIMES A DAY FOR ANXIETY Rx Instructions: TAKE ONE TABLET BY MOUTH 2 TIMES A DAY FOR ANXIETY methocarbamol 500 mg tablet 500 mg PO TID Qty: 45 0RF Referrals Follow up/Referrals: Vaibhav Lamb APRN [Primary Care Provider] - See instructions Activity Restrictions/Add. Instructions Additional Instructions/Restrictions: Go home and rest. No heavy lifting. No twisting. Take the oral medications as directed. Don't start the oral stero
[2022-01-16 18:27] VITALS: BP 122/77; PULSE 81; RESP 16; TEMP 36.6; O2SAT 97; BMI 25.0
--- NOTE | 2022-01-16 18:29 | XR_ITS ---
PROCEDURE INFORMATION: Exam: XR Thoracic Spine Exam date and time: 01/16/2022 6:34 PM Age: 36 years old Clinical indication: Pain in thoracic spine; Additional info: Thoracic back pain TECHNIQUE: Imaging protocol: Radiologic exam of the thoracic spine. Views: 2 views. COMPARISON: CR XR CERVICAL SPINE 3V 01/16/2022 6:31 PM FINDINGS: Bones/joints: Eleven pairs of ribs, 12th ribs appear hypoplastic. There is [id number] levo scoliotic curvature at the thoracolumbar junction. No acute fracture or listhesis, as visualized. Very mild disc narrowing and spondylosis.There are no lytic skeletal lesions seen. The visualized posterior ribs appear intact. Soft tissues: No acute findings in the paraspinous soft tissues. IMPRESSION: 1. No acute fracture or listhesis. 2. Thoracolumbar levoscoliosis which could be chronic or due to muscle spasm. 3. Minimal degenerative changes, as above.
--- NOTE | 2022-01-16 18:29 | XR_ITS ---
PROCEDURE INFORMATION: Exam: XR Right Shoulder Exam date and time: 01/16/2022 6:38 PM Age: 36 years old Clinical indication: Pain; Shoulder; Right; Additional info: Shoulder pain TECHNIQUE: Imaging protocol: Radiologic exam of the Right shoulder. Views: 2 or more views. COMPARISON: CR XR CERVICAL SPINE 3V 01/16/2022 6:31 PM FINDINGS: Bones/joints: Bones appear intact and normally aligned with normal mineralization. No arthritic deformities at the glenohumeral joint or acromioclavicular joint. There are no lytic skeletal lesions seen. Visualized right upper ribs appear intact. Lungs: Visualized right lung is clear; incidentally noted is a developmental accessory azygous fissure/azygous lobe at the right apex. Soft tissues: No acute findings. No radiopaque foreign bodies. No pathologic soft tissue calcification. IMPRESSION: No acute findings.
--- NOTE | 2022-01-16 18:29 | XR_ITS ---
PROCEDURE INFORMATION: Exam: XR Cervical Spine Exam date and time: 01/16/2022 6:31 PM Age: 36 years old Clinical indication: Neck pain TECHNIQUE: Imaging protocol: Radiologic exam of the cervical spine. Views: 2 or 3 views. COMPARISON: CT CERVICAL SPINE WO CON 12/21/2019 3:35 AM FINDINGS: Bones/joints: No acute fracture or listhesis. Slight straightening of cervical lordosis could be due to muscle spasm. Very mild spondylosis at C6-C7 and minimal at C5-C6. Slight posterior disc space narrowing throughout.There are no lytic skeletal lesions seen. Slightly asymmetric space between the lateral masses of C1 and the odontoid process of C2, slightly widened on the right and relatively narrowed on the left, raising the possibility of slight torticollis. Soft tissues: No acute findings in the soft tissues. No prevertebral swelling. IMPRESSION: 1. No acute fracture or listhesis. 2. Cervical muscle spasm, possible slight torticollis. 3. Minimal degenerative disc narrowing and spondylosis.
[2022-01-16 19:40] VITALS: BP 122/77; PULSE 81; RESP 16; TEMP 36.6; O2SAT 97
== END 2022-01-16 19:41 | disposition home or self-care (01) ==
LOC: ER 18:16 → UTC 18:16
PROVIDERS: Emergency Provider Nurse Practitioner Family; PCP Nurse Practitioner Family
DX: M54.12 Radiculopathy, cervical region (principal)
CPT/HCPCS: 72040; 72070; 73030; 96372; 99212; G0463

== ENCOUNTER 2022-09-01 13:50 | Emergency (ER) | payer OTHER, SELFPAY ==
[2022-09-01 13:50] VITALS: BP 99/50; PULSE 73; RESP 18; TEMP 37.2; O2SAT 98; BMI 23.7
[2022-09-01 14:16] VITALS: BP 124/75; PULSE 76; O2SAT 100
--- NOTE | 2022-09-01 14:24 | PC.NURSE ---
DR MONTEIRO AT BEDSIDE
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
--- NOTE | 2022-09-01 14:29 | HMH.EDASLT ---
Discharge Plan Disposition Patient Disposition: Home, Self-Care Condition: Good Prescriptions Prescriptions: New hydrocodone-acetaminophen 5-325 mg tablet 1 tab PO Q8H PRN (Reason: pain) Qty: 10 0RF cephalexin 500 mg capsule 500 mg PO Q8H 7 Days Qty: 21 0RF No Action budesonide-formoterol 80-4.5 mcg/actuation HFA aerosol inhaler 2 puff INHALATION BID Qty: 10.2 2RF dicyclomine 20 mg tablet 20 mg PO TID PRN (Reason: abdominal pain) Qty: 180 4RF (DME) blood-glucose meter [Blood Glucose Monitoring] Kit See Rx Instructions .ROUTE .MEDSUPPLY Qty: 1 0RF Rx Instructions: As directed (DME) Blood Glucose Test Strip See Rx Instructions .ROUTE .MEDSUPPLY Qty: 50 12RF Rx Instructions: As directed (DME) lancets [Droplet Lancets] 30 gauge misc See Rx Instructions .ROUTE .MEDSUPPLY Qty: 200 12RF Rx Instructions: As directed bisacodyl 5 mg tablet 5 mg PO HS 2 Days Qty: 2 0RF Ubrelvy 100 mg tablet 100 mg PO ONCE Qty: 10 1RF Rx Instructions: Sumatrip not effective sumatriptan succinate 25 mg tablet 25 mg PO Q2H PRN (Reason: migraine headache) Qty: 10 2RF Rx Instructions: do not exceed 8 doses per 24 hrs quetiapine 100 mg tablet See Rx Instructions .ROUTE .COMPLEX Qty: 30 2RF Dose Instruction: TAKE ONE TABLET BY MOUTH EVERY NIGHT AT BEDTIME FOR ANXIETY Rx Instructions: TAKE ONE TABLET BY MOUTH EVERY NIGHT AT BEDTIME FOR ANXIETY propranolol 80 mg capsule,extended release 24hr See Rx Instructions .ROUTE .COMPLEX Qty: 30 3RF Dose Instruction: TAKE ONE CAPSULE BY MOUTH ONCE A DAY Rx Instructions: TAKE ONE CAPSULE BY MOUTH ONCE A DAY pantoprazole [Protonix] 40 mg tablet,delayed release (DR/EC) 40 mg PO DAILY Qty: 90 3RF divalproex 500 mg tablet extended release 24 hr See Rx Instructions .ROUTE .COMPLEX Qty: 60 3RF Dose Instruction: TAKE ONE TABLET BY MOUTH 2 TIMES A DAY Rx Instructions: TAKE ONE TABLET BY MOUTH 2 TIMES A DAY prednisone 20 mg tablet 20 mg PO BID 5 Days Qty: 10 0RF cyclobenzaprine 10 mg tablet 10 mg PO TID PRN (Reason: muscle spasm) Qty: 60 0RF Duofilm 17 % liquid 1 applic topical BID Qty: 9.8 6RF acetaminophen-codeine 300-30 mg tablet 1 tab PO TID PRN (Reason: pain) Qty: 45 3RF methocarbamol 500 mg tablet 500 mg PO TID Qty: 45 0RF atorvastatin 20 mg tablet See Rx Instructions .ROUTE .COMPLEX Qty: 30 2RF Dose Instruction: TAKE ONE TABLET BY MOUTH EVERY NIGHT AT BEDTIME FOR CHOLESTEROL Rx Instructions: TAKE ONE TABLET BY MOUTH EVERY NIGHT AT BEDTIME FOR CHOLESTEROL buspirone 15 mg tablet See Rx Instructions .ROUTE .COMPLEX Qty: 60 2RF Dose Instruction: TAKE ONE TABLET BY MOUTH 2 TIMES A DAY FOR ANXIETY Rx Instructions: TAKE ONE TABLET BY MOUTH 2 TIMES A DAY FOR ANXIETY acetaminophen 325 mg tablet See Rx Instructions .ROUTE .COMPLEX Qty: 60 3RF Dose Instruction: TAKE ONE TABLET BY MOUTH FOUR TIMES A DAY NEEDED FOR PAIN Rx Instructions: TAKE ONE TABLET BY MOUTH FOUR TIMES A DAY NEEDED FOR PAIN fluticasone propionate 50 mcg/actuation spray,suspension See Rx Instructions .ROUTE .COMPLEX Qty: 16 0RF Dose Instruction: USE 2 SPRAYS IN EACH NOSTRIL EVERY DAY FOR ALLERGY SYMPTOMS Rx Instructions: USE 2 SPRAYS IN EACH NOSTRIL EVERY DAY FOR ALLERGY SYMPTOMS albuterol sulfate [ProAir HFA] 90 mcg/actuation HFA aerosol inhaler See Rx Instructions .ROUTE .COMPLEX Qty: 8.5 0RF Dose Instruction: INHALE 1 PUFF BY MOUTHEVERY 4 TO 6 HOURS NEEDED FOR SHORTNESS OF BREATH OR WHEEZING Rx Instructions: INHALE 1 PUFF BY MOUTHEVERY 4 TO 6 HOURS NEEDED FOR SHORTNESS OF BREATH OR WHEEZING amitriptyline 25 mg tablet See Rx Instructions .ROUTE .COMPLEX Qty: 30 0RF Dose Instruction: TAKE ONE TABLET BY MOUTH AT BEDTIME FOR INSOMNIA Rx Instructions: TAKE
[2022-09-01 14:30] VITALS: BP 120/84; PULSE 84; O2SAT 100
--- NOTE | 2022-09-01 14:49 | PC.NURSE ---
PT TO CT
[2022-09-01 15:30] VITALS: BP 114/65; PULSE 67; O2SAT 95
--- NOTE | 2022-09-01 15:33 | PC.NURSE ---
DR MONTEIRO AT BEDSIDE
--- NOTE | 2022-09-01 15:53 | PC.NURSE ---
DR MONTEIRO AT BEDSIDE TO UPDATE PT
--- NOTE | 2022-09-01 16:04 | ED_ITS ---
Discharge Plan Disposition Patient Disposition: Home, Self-Care Condition: Good Prescriptions Prescriptions: New hydrocodone-acetaminophen 5-325 mg tablet 1 tab PO Q8H PRN (Reason: pain) Qty: 10 0RF cephalexin 500 mg capsule 500 mg PO Q8H 7 Days Qty: 21 0RF No Action budesonide-formoterol 80-4.5 mcg/actuation HFA aerosol inhaler 2 puff INHALATION BID Qty: 10.2 2RF dicyclomine 20 mg tablet 20 mg PO TID PRN (Reason: abdominal pain) Qty: 180 4RF (DME) blood-glucose meter [Blood Glucose Monitoring] Kit See Rx Instructions .ROUTE .MEDSUPPLY Qty: 1 0RF Rx Instructions: As directed (DME) Blood Glucose Test Strip See Rx Instructions .ROUTE .MEDSUPPLY Qty: 50 12RF Rx Instructions: As directed (DME) lancets [Droplet Lancets] 30 gauge misc See Rx Instructions .ROUTE .MEDSUPPLY Qty: 200 12RF Rx Instructions: As directed bisacodyl 5 mg tablet 5 mg PO HS 2 Days Qty: 2 0RF Ubrelvy 100 mg tablet 100 mg PO ONCE Qty: 10 1RF Rx Instructions: Sumatrip not effective sumatriptan succinate 25 mg tablet 25 mg PO Q2H PRN (Reason: migraine headache) Qty: 10 2RF Rx Instructions: do not exceed 8 doses per 24 hrs quetiapine 100 mg tablet See Rx Instructions .ROUTE .COMPLEX Qty: 30 2RF Dose Instruction: TAKE ONE TABLET BY MOUTH EVERY NIGHT AT BEDTIME FOR ANXIETY Rx Instructions: TAKE ONE TABLET BY MOUTH EVERY NIGHT AT BEDTIME FOR ANXIETY propranolol 80 mg capsule,extended release 24hr See Rx Instructions .ROUTE .COMPLEX Qty: 30 3RF Dose Instruction: TAKE ONE CAPSULE BY MOUTH ONCE A DAY Rx Instructions: TAKE ONE CAPSULE BY MOUTH ONCE A DAY pantoprazole [Protonix] 40 mg tablet,delayed release (DR/EC) 40 mg PO DAILY Qty: 90 3RF divalproex 500 mg tablet extended release 24 hr See Rx Instructions .ROUTE .COMPLEX Qty: 60 3RF Dose Instruction: TAKE ONE TABLET BY MOUTH 2 TIMES A DAY Rx Instructions: TAKE ONE TABLET BY MOUTH 2 TIMES A DAY prednisone 20 mg tablet 20 mg PO BID 5 Days Qty: 10 0RF cyclobenzaprine 10 mg tablet 10 mg PO TID PRN (Reason: muscle spasm) Qty: 60 0RF Duofilm 17 % liquid 1 applic topical BID Qty: 9.8 6RF acetaminophen-codeine 300-30 mg tablet 1 tab PO TID PRN (Reason: pain) Qty: 45 3RF methocarbamol 500 mg tablet 500 mg PO TID Qty: 45 0RF atorvastatin 20 mg tablet See Rx Instructions .ROUTE .COMPLEX Qty: 30 2RF Dose Instruction: TAKE ONE TABLET BY MOUTH EVERY NIGHT AT BEDTIME FOR CHOLESTEROL Rx Instructions: TAKE ONE TABLET BY MOUTH EVERY NIGHT AT BEDTIME FOR CHOLESTEROL buspirone 15 mg tablet See Rx Instructions .ROUTE .COMPLEX Qty: 60 2RF Dose Instruction: TAKE ONE TABLET BY MOUTH 2 TIMES A DAY FOR ANXIETY Rx Instructions: TAKE ONE TABLET BY MOUTH 2 TIMES A DAY FOR ANXIETY acetaminophen 325 mg tablet See Rx Instructions .ROUTE .COMPLEX Qty: 60 3RF Dose Instruction: TAKE ONE TABLET BY MOUTH FOUR TIMES A DAY NEEDED FOR PAIN Rx Instructions: TAKE ONE TABLET BY MOUTH FOUR TIMES A DAY NEEDED FOR PAIN fluticasone propionate 50 mcg/actuation spray,suspension See Rx Instructions .ROUTE .COMPLEX Qty: 16 0RF Dose Instruction: USE 2 SPRAYS IN EACH NOSTRIL EVERY DAY FOR ALLERGY SYMPTOMS Rx Instructions: USE 2 SPRAYS IN EACH NOSTRIL EVERY DAY FOR ALLERGY SYMPTOMS albuterol sulfate [ProAir HFA] 90 mcg/actuation HFA aerosol inhaler See Rx Instructions .ROUTE .COMPLEX Qty: 8.5 0RF Dose Instruction:
[2022-09-01 16:05] VITALS: BP 158/66; PULSE 84; RESP 18; TEMP 36.8; O2SAT 98
== END 2022-09-01 16:08 | disposition home or self-care (01) ==
PROVIDERS: Emergency Provider Emergency Medicine; PCP Nurse Practitioner Family
DX: S02.2XXB Fracture of nasal bones, initial encounter for open fracture (principal); F17.210 Nicotine dependence, cigarettes, uncomplicated; Y09 Assault by unspecified means; M54.2 Cervicalgia
CPT/HCPCS: 70450; 70486; 72125; 99284; 99285

== ENCOUNTER → 2022-09-19 12:41 | Outpatient (CLI) | payer OTHER, SELFPAY ==
--- NOTE | 2022-09-19 12:50 | ECG_ITS ---
APPROVED REPORT Exam: Resting ECG HR:66 bpm ECG Measurements Heart Rate 66 AXES DE 127 P 68 QRSd 102 QRS 75 QT 408 T 71 QTc 422 Conclusion SINUS RHYTHM WITH SINUS ARRHYTHMIA INCOMPLETE RIGHT BUNDLE BRANCH BLOCK [90+ ms QRS DURATION, TERMINAL R IN V1/V2, 40+ ms S IN I/aVL/V4/V5/V6] BORDERLINE ECG UNCONFIRMED REPORT Electronically signed by : Melquiades Ahuja MD 09/20/2022 07:45:33
[2022-09-19 13:30] LABS: Basophils # 0.1 K/mm3 (0-0.2); Basophils % 0.9 % (0.1-2.0); Eosinophils # 0.2 K/mm3 (0.0-0.4); Eosinophils % 3.3 % (0.1-12.0); Hematocrit 51.3 % (42.0-52.0); Hemoglobin 16.8 g/dL (14.1-18.0); Lymphocytes # 1.9 K/mm3 (0.7-4.5); Lymphocytes % 33.1 % (10-50); Mean Corpuscular HGB Conc 32.7 g/dL (31.8-35.4); Mean Corpuscular Hemoglobin 33.8 pg (27.0-31.2); Mean Corpuscular Volume 103.6 fl (80-94); Mean Platelet Volume 7.2 fl (7.4-10.4); Monocytes # 0.4 K/mm3 (0.1-1.0); Monocytes % 6.3 % (1.7-9.3); Neutrophils # 3.3 K/mm3 (1.8-7.8); Neutrophils % 56.5 % (37.0-80.0); Platelet Count 314 K/mm3 (142-424); Red Blood Count 4.95 M/mm3 (4.60-6.20); Red Cell Distribution Width 12.7 % (11.5-17.5); White Blood Count 5.8 K/mm3 (4.8-10.8)
[2022-09-19 13:50] LABS: Anion Gap 21.2 mEq/L (5-15); Blood Urea Nitrogen 9 mg/dl (9-20); Calcium 9.6 mg/dl (8.4-10.2); Carbon Dioxide 31 mmol/L (22.0-30.0); Chloride 95 mmol/L (98-107); Estimated Glomerular Filt Rate 110 ml/min (>60); GFR (African American) 133 ML/MIN (>60); Glucose 72 mg/dl (74-100); Potassium 4.2 mmoL/L (3.5-5.1); Sodium 143 mmol/L (136-145)
== END ==
PROVIDERS: PCP Nurse Practitioner Family; Visit Provider Student in an Organized Health Care Education/Training Program
DX: Z01.818 Encounter for other preprocedural examination (principal); S02.2XXA Fracture of nasal bones, initial encounter for closed fracture
CPT/HCPCS: 36415; 80048; 85025; 93005

== ENCOUNTER 2022-09-23 10:02 | Day surgery (SDC) | payer OTHER, SELFPAY ==
[2022-09-22 11:35] VITALS: BMI 23.0
[2022-09-23] VITALS (11 sets, daily range): BP systolic 110–158; BP diastolic 54–78; PULSE 66–82; RESP 12–18; TEMP 36.4–36.9; O2SAT 92–99
--- NOTE | 2022-09-23 12:50 | EXP.OP.NOTE ---
Date of procedure: 09/23/22 Pre-op Diagnosis:: nasal fracture Post-op Diagnosis:: same Procedure performed:: closed reduction of nasal fracture Surgeon:: Ye De Jesus MD PRINCIPAL SECRETARY:: Gerardo Gutierrez Anesthesia: LMA Estimated blood loss (mL): 5 Operative findings:: left to right displaced nasal bone fracture s/p closed reduction Operative note:: The patient was brought to the OR, laid in the supine position, and general anesthesia with an LMA was induced. Patient was prepped and draped in the usual fashion. Afrin-soaked pledgets were used to decongest the patient's nares. Patient had a left to right displaced nasal bone fractures. Using the bois elevator the fractures were reduced back into alignment. A rolled piece of Surgicel was placed in the superior nasal vault on the left to help support where the left nasal bone had been displaced inwardly. Steri-Strips and external splint were then fashioned externally across the patient's nose. His nose and mouth were then thoroughly suctioned out. He was then turned back over to anesthesia to be awoken. Condition: stable Disposition: PACU Complications:: none
--- NOTE | 2022-09-23 12:58 | P.PNANES_ITS ---
[facility] Anesthesia Record Part I Anesthesia Record I Intake, IV Amount: 900 Estimated blood loss (mL): 20 Urine output (mL): 0 Blood Pressure: 150/78 SaO2: 97 Pulse Rate: 80 Respiratory Rate: 12 Temperature: 97.5 F Patient is:: Awake and Stable Stable to PACU at:: 12:55
[2022-09-23 13:05] LABS: POC Glucose,Bedside 101 (70-110)
[2022-09-23 13:45] LABS: POC Glucose,Bedside 90 (70-110)
--- NOTE | 2022-09-23 16:27 | P.PNANES_ITS ---
[facility] Anesthesia Record Part I Anesthesia Record I Intake, IV Amount: 1,500 Estimated blood loss (mL): 300 Urine output (mL): 0 Blood Pressure: 158/72 SaO2: 92 Pulse Rate: 76 Respiratory Rate: 12 Temperature: 97.5 F Patient is:: Awake and Stable Stable to PACU at:: 16:25
--- NOTE | 2022-09-24 07:36 | P.PNANES_ITS ---
[facility] Anesthesia Record Part II Anesthesia Record Part II Discharge Time: 13:25 Destination: Surgical Day Care (OP Surgery) PACU nurse assessment reviewed?: Yes Patient Condition:: Good Anesthesia Complications:: None Swallowing reflex intact?: Yes Cyanosis?: No Blood Pressure: 118/67 Pulse Rate: 71 Temperature: 98 F Mental Status: Alert & Oriented Pain level:: 5 Nausea and/or vomitting:: None Intake, IV Amount: 0
[2022-09-24 07:37] VITALS: BP 118/67; PULSE 71; TEMP 36.6
[2022-09-24 08:00] VITALS: BP 112/69; PULSE 90; RESP 24; TEMP 36.5; O2SAT 100
--- NOTE | 2022-09-24 08:00 | EXP.ANES.I ---
[facility] Anesthesia Record Part I Anesthesia Record I Intake, IV Amount: 0 Estimated blood loss (mL): 0 Urine output (mL): 0 Blood Products used (#): none Blood Pressure: 112/69 SaO2: 100 Pulse Rate: 90 Respiratory Rate: 24 Temperature: 97.7 F Patient is:: Drowsy and Stable Stable to PACU at:: 08:00
== END 2022-09-23 14:00 | disposition home or self-care (01) ==
PROVIDERS: PCP Nurse Practitioner Family; Visit Provider Student in an Organized Health Care Education/Training Program
PROC: 0NSBXZZ Reposition Nasal Bone, External Approach (ICD-10-PCS; CPT 21315; principal; 2022-09-23 11:45)
DX: S02.2XXA Fracture of nasal bones, initial encounter for closed fracture (principal); F17.210 Nicotine dependence, cigarettes, uncomplicated; E11.9 Type 2 diabetes mellitus without complications
CPT/HCPCS: 21315; 82962; J2405

== ENCOUNTER → 2022-11-24 15:03 | Outpatient (CLI) | payer OTHER, SELFPAY ==
[2022-11-24 17:21] LABS: Free T4 (Free Thyroxine) 0.96 ng/dl (0.78-2.19)
[2022-11-24 17:39] LABS: Thyroid Stimulating Hormone 2.17 uIU/mL (0.465-4.68)
== END ==
PROVIDERS: PCP Nurse Practitioner Family; Visit Provider Nurse Practitioner
DX: E03.9 Hypothyroidism, unspecified (principal)
CPT/HCPCS: 36415; 84439; 84443

== ENCOUNTER → 2022-11-26 16:57 | Outpatient (CLI) | payer OTHER, SELFPAY ==
--- NOTE | 2022-11-26 16:57 | MR_ITS ---
PROCEDURE INFORMATION: Exam: MR Head Without Contrast Exam date and time: 11/26/2022 5:20 PM Age: 36 years old Clinical indication: Pain; Headache; Migraine; Additional info: Migraines. Ringing in ears and blurry vision TECHNIQUE: Imaging protocol: Magnetic resonance imaging of the head without contrast. COMPARISON: CT HEAD/BRAIN WO CON 09/01/2022 2:51 PM FINDINGS: Brain: No acute infarct. No hemorrhage. Trace periventricular FLAIR signal hyperintensity is nonspecific but may be related to migraine headaches given history. No edema. Cerebral ventricles: Normal. No ventriculomegaly. Bones/joints: Unremarkable. Paranasal sinuses: Scattered paranasal sinus mucosal thickening, without air-fluid level present. Mastoid air cells: Normal as visualized. No mastoid effusion. Orbital cavities: Unremarkable. Soft tissues: Unremarkable. IMPRESSION: No acute intracranial abnormality.
== END ==
PROVIDERS: PCP Nurse Practitioner Family; Visit Provider Nurse Practitioner Family
DX: G43.109 Migraine with aura, not intractable, without status migrainosus (principal)
CPT/HCPCS: 70551

== ENCOUNTER 2023-01-29 17:58 | Emergency (ER) | payer OTHER, SELFPAY ==
--- NOTE | 2023-01-29 17:56 | ECG_ITS ---
APPROVED REPORT Exam: Resting ECG HR:62 bpm ECG Measurements Heart Rate 62 AXES AZ 118 P 52 QRSd 98 QRS 73 QT 400 T 77 QTc 404 Conclusion SINUS RHYTHM WITH SHORT AZ INTERVAL NONSPECIFIC T-WAVE ABNORMALITY BORDERLINE ECG UNCONFIRMED REPORT Electronically signed by : Melquiades Ahuja MD 01/30/2023 12:07:45
[2023-01-29 17:58] VITALS: BP 118/76; PULSE 70; RESP 18; TEMP 36.6; O2SAT 99; BMI 23.7
--- NOTE | 2023-01-29 18:01 | XR_ITS ---
PROCEDURE INFORMATION: Exam: XR Chest Exam date and time: 01/29/2023 6:23 PM Age: 37 years old Clinical indication: Pain; Chest pressure; Additional info: Cp TECHNIQUE: Imaging protocol: Radiologic exam of the chest. Views: 1 view. COMPARISON: CR XR CHEST 2V 12/21/2019 3:25 AM FINDINGS: Lungs: Unremarkable. No consolidation. Pleural spaces: Unremarkable. No pleural effusion. No pneumothorax. Heart/Mediastinum: Unremarkable. No cardiomegaly. Bones/joints: Unremarkable. IMPRESSION: No acute findings.
--- NOTE | 2023-01-29 18:18 | HMH.EDGENADL ---
Discharge Plan Disposition Patient Disposition: Home, Self-Care Chief Complaint: PAIN Prescriptions Prescriptions: No Action acetaminophen-codeine 300-30 mg tablet 1 tab PO TID PRN (Reason: pain) Qty: 60 1RF quetiapine 100 mg tablet 100 mg PO HS Qty: 90 1RF pantoprazole [Protonix] 40 mg tablet,delayed release (DR/EC) 40 mg PO DAILY Qty: 90 1RF atorvastatin 20 mg tablet 20 mg PO HS Qty: 90 1RF cyclobenzaprine 10 mg tablet 10 mg PO TID PRN (Reason: muscle spasm) Qty: 60 0RF bisacodyl 5 mg tablet,delayed release (DR/EC) 5 mg PO DAILY [place] Saline 0.65 % aerosol,spray 2 spray intranasal Q4H PRN (Reason: nasal congestion) Qty: 50 2RF Ajovy Autoinjector 225 mg/1.5 mL auto-injector 225 mg SQ QMONTH Qty: 1.5 2RF Rx Instructions: First injection to be given in office for training/education purposes Ubrelvy 100 mg tablet 100 mg PO ONCE PRN (Reason: Migraine) Qty: 10 2RF Rx Instructions: Take 1 tablet at onset of headache. May repeat 1 tablet after 2 hours if symptoms persist. Max dose 2 tablets in 24 hours. acetaminophen 325 mg tablet See Rx Instructions .ROUTE .COMPLEX Qty: 60 0RF Dose Instruction: TAKE ONE TABLET BY MOUTH FOUR TIMES A DAY NEEDED FOR PAIN Rx Instructions: TAKE ONE TABLET BY MOUTH FOUR TIMES A DAY NEEDED FOR PAIN albuterol sulfate [Ventolin HFA] 90 mcg/actuation HFA aerosol inhaler See Rx Instructions .ROUTE .COMPLEX Qty: 18 0RF Dose Instruction: INHALE 1 PUFF BY MOUTH EVERY 4 TO 6 HOURS NEEDED FOR SHORTNESS OF BREATH OR WHEEZING Rx Instructions: INHALE 1 PUFF BY MOUTH EVERY 4 TO 6 HOURS NEEDED FOR SHORTNESS OF BREATH OR WHEEZING methocarbamol 500 mg tablet 500 mg PO TID (DME) Blood Glucose Test Strip See Rx Instructions .ROUTE .MEDSUPPLY Rx Instructions: As directed (DME) blood-glucose meter [Blood Glucose Monitoring] Kit See Rx Instructions .ROUTE .MEDSUPPLY Rx Instructions: As directed propranolol 80 mg capsule,extended release 24hr See Rx Instructions .ROUTE .COMPLEX Rx Instructions: TAKE ONE CAPSULE BY MOUTH ONCE A DAY budesonide-formoterol 80-4.5 mcg/actuation HFA aerosol inhaler 2 puff INHALATION BID (DME) lancets [Droplet Lancets] 30 gauge misc See Rx Instructions .ROUTE .MEDSUPPLY Rx Instructions: As directed Referrals Follow up/Referrals: Provider,Referral, [Primary Care Provider] - See instructions Activity Restrictions/Add. Instructions Additional Instructions/Restrictions: A1c was 5.0, you do not have diabetes. Talk to your family doctor about cholesterol medication. you did not have a heart attack today. Call your family doctor to establish care for this visit to the emergency department and schedule follow-up within 48 hours to ensure improvement. If you have any worsening of your condition or any other concerning signs or symptoms, return to the emergency department or your primary care doctor for further evaluation. Clinical Impressions Clinical Impression: Acute pain of right shoulder Discharge ED Provider: Mike Koroma General Adult HPI General Chief complaint: PAIN Stated complaint: Chest pain Time Seen by Provider: 01/29/23 18:00 Mode of Arrival: Ambulatory Source of Information: Patient Limitations: No Limitations Description of Symptoms (Recalled from ER Triage Doc. by RN): Patient complaint of right shoulder spasms that have began to radiate to his right side of his chest. Denies N/V/D, left sided chest pain or jaw pain at this time. History of Present Illness HPI narrative: 37-year-old male with reported history of seizure disorder, hypertension, hyperlipidemia, diabetes presenting with chest pain. Patient states that he has rotator cuff problems on his right shoulder. Was playing [employer] today around noon, about 6 hours prior to arrival, when the pain started radiating from his back shoulde
[2023-01-29 18:19] LABS: Basophils % 0.6 % (0.1-2.0); Eosinophils # 0.2 K/mm3 (0.0-0.4); Eosinophils % 3.6 % (0.1-12.0); Hematocrit 49.7 % (42.0-52.0); Hemoglobin 16.6 g/dL (14.1-18.0); Lymphocytes # 1.8 K/mm3 (0.7-4.5); Lymphocytes % 31.1 % (10-50); Mean Corpuscular HGB Conc 33.5 g/dL (31.8-35.4); Mean Corpuscular Hemoglobin 33.7 pg (27.0-31.2); Mean Corpuscular Volume 100.6 fl (80-94); Mean Platelet Volume 7.8 fl (7.4-10.4); Monocytes # 0.3 K/mm3 (0.1-1.0); Monocytes % 5.1 % (1.7-9.3); Neutrophils # 3.5 K/mm3 (1.8-7.8); Neutrophils % 59.5 % (37.0-80.0); Platelet Count 276 K/mm3 (142-424); Red Blood Count 4.94 M/mm3 (4.60-6.20); Red Cell Distribution Width 12.6 % (11.5-17.5); White Blood Count 5.9 K/mm3 (4.8-10.8)
[2023-01-29 18:38] LABS: Chol/HDL Ratio 8.5 (1-3.5); Cholesterol 247 mg/dl (140-200); HDL Cholesterol 29 mg/dl (40-60)
[2023-01-29 18:40] LABS: Triglycerides 463 mg/dl (30-150)
[2023-01-29 18:49] LABS: Direct LDL Cholesterol 154.77 mg/dL (100-129)
--- NOTE | 2023-01-29 18:51 | PC.NURSE ---
Pt complains of pain. MD notified.
[2023-01-29 19:03] LABS: Chloride 105 mmol/L (98-107)
[2023-01-29 19:04] LABS: Potassium 4.3 mmoL/L (3.5-5.1); Sodium 142 mmol/L (136-145)
[2023-01-29 19:06] LABS: Alanine Aminotransferase 22 U/L (12-78); Aspartate Amino Transferase 29 U/L (17-59); Blood Urea Nitrogen 8 mg/dl (9-20); Creatinine Clearance Estimated 143 mL/min (50-200); Estimated Glomerular Filt Rate 109 ml/min (>60); GFR (African American) 132 ML/MIN (>60)
[2023-01-29 19:07] LABS: Albumin Level 4.1 g/dl (3.5-5.0); Albumin/Globulin Ratio 1.5 (1.1-1.8); Alkaline Phosphatase 75 U/L (38-126); Anion Gap 11.3 mEq/L (5-15); Bilirubin,Total 0.8 mg/dl (0.2-1.3); Carbon Dioxide 30 mmol/L (22.0-30.0); Globulin 2.8 g/dL (1.3-3.2); Glucose 77 mg/dl (74-100); Total Protein,Serum 6.9 g/dl (6.3-8.2)
[2023-01-29 19:19] LABS: Troponin I < 0.01 ng/ml (0.00-0.034)
[2023-01-29 19:52] VITALS: BP 117/68; PULSE 58; RESP 19; TEMP 36.8; O2SAT 98
== END 2023-01-29 20:43 | disposition home or self-care (01) ==
PROVIDERS: Emergency Provider Emergency Medicine
DX: R07.9 Chest pain, unspecified (principal); M25.511 Pain in right shoulder; G40.909 Epilepsy, unspecified, not intractable, without status epilepticus; I10 Essential (primary) hypertension; E78.5 Hyperlipidemia, unspecified; E11.9 Type 2 diabetes mellitus without complications; J44.9 Chronic obstructive pulmonary disease, unspecified; F25.0 Schizoaffective disorder, bipolar type; F41.9 Anxiety disorder, unspecified; E03.9 Hypothyroidism, unspecified; F32.A Depression, unspecified; F17.210 Nicotine dependence, cigarettes, uncomplicated
CPT/HCPCS: 71045; 80053; 80061; 83036; 84484; 85025; 93005; 96374; 99285; J0131

== ENCOUNTER 2023-04-02 22:46 | Emergency (ER) | payer OTHER, SELFPAY ==
[2023-04-02 23:00] VITALS: BP 134/92; PULSE 75; RESP 20; TEMP 36.4; O2SAT 99; BMI 23.7
--- NOTE | 2023-04-02 23:24 | XR_ITS ---
PROCEDURE INFORMATION: Exam: XR Left Shoulder Exam date and time: 04/02/2023 11:28 PM Age: 37 years old Clinical indication: Pain; Shoulder; Left; Additional info: Large cart fell onto L side of body, pain TECHNIQUE: Imaging protocol: Radiologic exam of the left shoulder. Views: 2 or more views. COMPARISON: CR XR CHEST PORTABLE 01/29/2023 6:23 PM FINDINGS: Bones/joints: The osseous structures appear intact with no evidence of acute fracture, dislocation, or malalignment. Joint spaces are preserved. No abnormal bone density or destructive lesions are noted. Soft tissues: Soft tissues appear unremarkable. IMPRESSION: At the time of imaging, there is no evidence for acute osseous abnormalities. Clinical correlation is advised for comprehensive assessment.
[2023-04-02 23:30] VITALS: BP 112/76; PULSE 63; O2SAT 97
--- NOTE | 2023-04-03 | CT_ITS ---
PROCEDURE INFORMATION: Exam: CT Thoracic Spine Without Contrast Exam date and time: 04/03/2023 12:36 AM Age: 37 years old Clinical indication: Injury or trauma; Other: Object fell on patient; Work related; Blunt trauma (contusions or hematomas); Additional info: Large cart fell onto L side of body, pain TECHNIQUE: Imaging protocol: Computed tomography of the thoracic spine without contrast. Radiation optimization: All CT scans at this facility use at least one of these dose optimization techniques: automated exposure control; mA and/or kV adjustment per patient size (includes targeted exams where dose is matched to clinical indication); or iterative reconstruction. REPORTING DATA: Count of CT and Cardiac NM exams in prior 12 months: This patient has received 3 known CTs and 0 known cardiac nuclear medicine studies in the 12 months prior to the current study. COMPARISON: CT CERVICAL SPINE WO CON 04/03/2023 12:34 AM FINDINGS: Bones/joints: Vertebral alignment is within normal limits without evidence of subluxation or spondylolisthesis. No evidence of vertebral body compression fractures, lytic or sclerotic lesions. Intervertebral disc spaces are preserved and within normal limits for patient's age. Facet joints are in normal configuration without signs of arthrosis or effusion. Soft tissues: Paravertebral soft tissues appear unremarkable. Lymph nodes: There are calcified mediastinal lymph nodes likely reflecting prior granulomatous disease. IMPRESSION: No evidence for acute spinal abnormality.
--- NOTE | 2023-04-03 | CT_ITS ---
PROCEDURE INFORMATION: Exam: CTA Abdomen and Pelvis With Contrast Exam date and time: 04/03/2023 12:44 AM Age: 37 years old Clinical indication: Injury or trauma; Additional info: Large cart fell onto L side of body, pain TECHNIQUE: Imaging protocol: Computed tomographic angiography of the abdomen and pelvis with contrast. Exam focused on the arteries. 3D rendering (Not supervised by radiologist): MIP and/or 3D reconstructed images were created by the technologist. Radiation optimization: All CT scans at this facility use at least one of these dose optimization techniques: automated exposure control; mA and/or kV adjustment per patient size (includes targeted exams where dose is matched to clinical indication); or iterative reconstruction. Contrast material: ISOVUE; Contrast volume: 100 ml; Contrast route: INTRAVENOUS (IV); REPORTING DATA: Count of CT and Cardiac NM exams in prior 12 months: This patient has received 3 known CTs and 0 known cardiac nuclear medicine studies in the 12 months prior to the current study. COMPARISON: CT BONY PELVIS 04/03/2023 12:41 AM FINDINGS: Aorta: No aortic aneurysm. No aortic dissection. Celiac trunk and mesenteric arteries: No occlusion or significant stenosis. Renal arteries: No occlusion or significant stenosis. Right iliac arteries: No occlusion or significant stenosis. Left iliac arteries: No occlusion or significant stenosis. Veins: Multiple pelvic phleboliths are present. Liver: No mass. Gallbladder and bile ducts: Unremarkable. No calcified stones. No ductal dilation. Pancreas: Unremarkable. No mass. No ductal dilation. Spleen: Unremarkable. No splenomegaly. Adrenal glands: Unremarkable. No mass. Kidneys and ureters: Unremarkable. No solid mass. No hydronephrosis. Stomach and bowel: There is large volume stool throughout the colon. Mild fluid distention of small-bowel loops. Appendix: No evidence of appendicitis. Intraperitoneal space: Unremarkable. No free air. No significant fluid collection. Lymph nodes: There are mildly prominent but nonenlarged and nonspecific retroperitoneal nodes. Mildly prominent nodes in the central mesentery, nonspecific. Urinary bladder: There is moderate distention of the urinary bladder. Reproductive: Unremarkable as visualized. Bones/joints: Please see the dedicated interpretation of the spine for findings in that region. Scattered bone islands are present throughout the osseous structures, stable from prior. Soft tissues: Unremarkable. Other findings: Please see the dedicated interpretation of the thorax for findings in that region. IMPRESSION: 1. No acute traumatic injury is identified. 2. Please see the dedicated interpretation of the thorax for findings in that region.
--- NOTE | 2023-04-03 | CT_ITS ---
PROCEDURE INFORMATION: Exam: CT Pelvis Without Contrast; Skeletal Exam date and time: 04/03/2023 12:41 AM Age: 37 years old Clinical indication: Injury or trauma; Other: Object fell on patient; Work related; Blunt trauma (contusions or hematomas); Left; Pelvic region; Additional info: Large cart fell onto L side of body, pain TECHNIQUE: Imaging protocol: Computed tomography of the pelvis without contrast. Exam focused on the skeleton. Radiation optimization: All CT scans at this facility use at least one of these dose optimization techniques: automated exposure control; mA and/or kV adjustment per patient size (includes targeted exams where dose is matched to clinical indication); or iterative reconstruction. REPORTING DATA: Count of CT and Cardiac NM exams in prior 12 months: This patient has received 3 known CTs and 0 known cardiac nuclear medicine studies in the 12 months prior to the current study. COMPARISON: CT ABDOMEN W CON 07/29/2019 1:15 AM FINDINGS: Stomach and bowel: There is large volume stool throughout the colon. Urinary bladder: There is moderate distention of the urinary bladder. Vasculature: Multiple pelvic phleboliths are present. Bones/joints: Small bone islands such as in the right iliac crest and left acetabulum, stable since at least July 29, 2019. No evidence for acute fracture or dislocation. Joint spaces are overall preserved. Soft tissues: Unremarkable. IMPRESSION: No acute traumatic injury identified.
--- NOTE | 2023-04-03 | CT_ITS ---
PROCEDURE INFORMATION: Exam: CTA Chest With Contrast Exam date and time: 04/03/2023 12:44 AM Age: 37 years old Clinical indication: Injury or trauma; Additional info: Large cart fell onto L side of body, pain TECHNIQUE: Imaging protocol: Computed tomographic angiography of the chest with contrast. Exam focused on the arteries. 3D rendering (Not supervised by radiologist): MIP and/or 3D reconstructed images were created by the technologist. Radiation optimization: All CT scans at this facility use at least one of these dose optimization techniques: automated exposure control; mA and/or kV adjustment per patient size (includes targeted exams where dose is matched to clinical indication); or iterative reconstruction. Contrast material: ISOVUE; Contrast volume: 100 ml; Contrast route: INTRAVENOUS (IV); REPORTING DATA: Count of CT and Cardiac NM exams in prior 12 months: This patient has received 3 known CTs and 0 known cardiac nuclear medicine studies in the 12 months prior to the current study. COMPARISON: CR XR CHEST PORTABLE 01/29/2023 6:23 PM FINDINGS: Pulmonary arteries: Normal. No pulmonary emboli. Aorta: Unremarkable. No aortic aneurysm. No aortic dissection. Lungs: There is an azygous lobe. Scattered areas of bronchial wall thickening which are likely chronic inflammatory. A few areas of subpleural reticulation are noted, nonspecific. There are few tiny pulmonary nodules such as a five mm nodule in the right upper lobe (image 44 series 9). Fleischner Society guidelines for follow-up are detailed below. Pleural spaces: Unremarkable. No pneumothorax. No pleural effusion. Heart: Unremarkable. No cardiomegaly. No pericardial effusion. Lymph nodes: Unremarkable. No enlarged lymph nodes. Intraperitoneal space: Please see the dedicated interpretation of abdomen and pelvis for findings in that region. Bones/joints: Please see the dedicated interpretation of the spine for findings in that region. Bone islands in the left humeral head. Soft tissues: Unremarkable. IMPRESSION: 1. No acute traumatic injury is identified. 2. Please see the dedicated interpretation of abdomen and pelvis for findings in that region. 3. Solid pulmonary nodules measuring less than 6 mm. For patients at low risk (minimal or absent history of smoking and of other known risk factors), no routine follow-up is indicated. For patients at high risk (history of smoking or of other known risk factors), consider optional CT Chest at 12 months. (Reference: Rajani). REFERENCES: Rajani Tomlin et al. Guidelines for Management of Incidental Pulmonary Nodules Detected on CT Images: From the Fleischner Society 2017. Radiology. 2017;284(1):228-243.
--- NOTE | 2023-04-03 | CT_ITS ---
PROCEDURE INFORMATION: Exam: CT Cervical Spine Without Contrast Exam date and time: 04/03/2023 12:34 AM Age: 37 years old Clinical indication: Injury or trauma; Additional info: Large cart fell onto L side of body, pain TECHNIQUE: Imaging protocol: Computed tomography of the cervical spine without contrast. Radiation optimization: All CT scans at this facility use at least one of these dose optimization techniques: automated exposure control; mA and/or kV adjustment per patient size (includes targeted exams where dose is matched to clinical indication); or iterative reconstruction. REPORTING DATA: Count of CT and Cardiac NM exams in prior 12 months: This patient has received 3 known CTs and 0 known cardiac nuclear medicine studies in the 12 months prior to the current study. COMPARISON: CT CERVICAL SPINE WO CON 09/01/2022 2:54 PM FINDINGS: Bones/joints: The alignment of the cervical spine is within normal limits. No evidence of acute fractures, dislocations, or subluxations is noted. The vertebral bodies and intervertebral disc spaces are well-preserved. The spinal canal is patent, with no evidence of spinal stenosis or neural foraminal narrowing. No acute posttraumatic changes are observed. There is no evidence of ligamentous injury, soft tissue swelling, or hematoma. While this study was primarily performed in the context of trauma, it is worth noting that there are no significant degenerative changes. Prevertebral and retropharyngeal spaces: The prevertebral and paraspinous soft tissues appear normal, without evidence of fluid collection. Lungs: Lung apices are normal. Nerves: No significant nerve root impingement is identified. Soft tissues: See Bones/joints finding. IMPRESSION: In the context of posttraumatic evaluation, the cervical spine CT demonstrates no acute fractures, dislocations, or subluxations. There is no evidence of spinal canal or neural foraminal stenosis. No acute posttraumatic soft tissue or ligamentous injuries are identified.
--- NOTE | 2023-04-03 | CT_ITS ---
PROCEDURE INFORMATION: Exam: CT Lumbar Spine Without Contrast Exam date and time: 04/03/2023 12:39 AM Age: 37 years old Clinical indication: Injury or trauma; Other: Object fell on patient; Work related; Blunt trauma (contusions or hematomas); Additional info: Large cart fell onto L side of body TECHNIQUE: Imaging protocol: Computed tomography of the lumbar spine without contrast. Radiation optimization: All CT scans at this facility use at least one of these dose optimization techniques: automated exposure control; mA and/or kV adjustment per patient size (includes targeted exams where dose is matched to clinical indication); or iterative reconstruction. REPORTING DATA: Count of CT and Cardiac NM exams in prior 12 months: This patient has received 3 known CTs and 0 known cardiac nuclear medicine studies in the 12 months prior to the current study. COMPARISON: CT THORACIC SPINE WO CON 04/03/2023 12:36 AM FINDINGS: Bones/joints: Bone island in the right iliac crest. There is straightening of the normal spinal curvature. Vertebral alignment is within normal limits without evidence of subluxation or spondylolisthesis. No evidence of vertebral body compression fractures, lytic or sclerotic lesions. Intervertebral disc spaces are preserved and within normal limits for patient's age. Facet joints are in normal configuration without signs of arthrosis or effusion. Small bone island in the right aspect of the L3 vertebral body. Soft tissues: Paravertebral soft tissues appear unremarkable. IMPRESSION: No evidence for acute spinal abnormality.
[2023-04-03 00:16] LABS: Basophils % 0.7 % (0.1-2.0); Eosinophils # 0.3 K/mm3 (0.0-0.4); Eosinophils % 4.5 % (0.1-12.0); Hemoglobin 16.5 g/dL (14.1-18.0); Lymphocytes # 2.3 K/mm3 (0.7-4.5); Lymphocytes % 40.1 % (10-50); Mean Corpuscular HGB Conc 33.6 g/dL (31.8-35.4); Mean Corpuscular Hemoglobin 33.2 pg (27.0-31.2); Mean Corpuscular Volume 98.8 fl (80-94); Mean Platelet Volume 7.8 fl (7.4-10.4); Monocytes # 0.3 K/mm3 (0.1-1.0); Monocytes % 5.3 % (1.7-9.3); Neutrophils # 2.8 K/mm3 (1.8-7.8); Neutrophils % 49.6 % (37.0-80.0); Platelet Count 232 K/mm3 (142-424); Red Blood Count 4.96 M/mm3 (4.60-6.20); White Blood Count 5.6 K/mm3 (4.8-10.8)
[2023-04-03 00:18] LABS: Alanine Aminotransferase 23 U/L (12-78); Alkaline Phosphatase 61 U/L (38-126); Aspartate Amino Transferase 34 U/L (17-59); Bilirubin,Total 1.6 mg/dl (0.2-1.3); Blood Urea Nitrogen 16 mg/dl (9-20); Carbon Dioxide 28 mmol/L (22.0-30.0); Chloride 101 mmol/L (98-107); Creatinine Clearance Estimated 143 mL/min (50-200); Estimated Glomerular Filt Rate 109 ml/min (>60); GFR (African American) 132 ML/MIN (>60)
[2023-04-03 00:19] LABS: Albumin Level 4.5 g/dl (3.5-5.0); Albumin/Globulin Ratio 1.5 (1.1-1.8); Calcium 9.1 mg/dl (8.4-10.2); Glucose 95 mg/dl (74-100); Total Protein,Serum 7.5 g/dl (6.3-8.2)
[2023-04-03 00:41] LABS: Sodium 137 mmol/L (136-145)
--- NOTE | 2023-04-03 01:07 | HMH.EDGENADL ---
Discharge Plan Disposition Patient Disposition: Home, Self-Care Prescriptions Prescriptions: No Action quetiapine 100 mg tablet 100 mg PO HS Qty: 90 1RF pantoprazole [Protonix] 40 mg tablet,delayed release (DR/EC) 40 mg PO DAILY Qty: 90 1RF atorvastatin 20 mg tablet 20 mg PO HS Qty: 90 1RF acetaminophen-codeine 300-30 mg tablet 1 tab PO TID PRN (Reason: pain) Qty: 60 1RF mupirocin 2 % ointment 1 applic topical BID Qty: 22 0RF cyclobenzaprine 10 mg tablet 10 mg PO TID PRN (Reason: muscle spasm) Qty: 60 0RF bisacodyl 5 mg tablet,delayed release (DR/EC) 5 mg PO DAILY [place] Saline 0.65 % aerosol,spray 2 spray intranasal Q4H PRN (Reason: nasal congestion) Qty: 50 2RF [place]ovy Autoinjector 225 mg/1.5 mL auto-injector 225 mg SQ QMONTH Qty: 1.5 2RF Rx Instructions: First injection to be given in office for training/education purposes Ubrelvy 100 mg tablet 100 mg PO ONCE PRN (Reason: Migraine) Qty: 10 2RF Rx Instructions: Take 1 tablet at onset of headache. May repeat 1 tablet after 2 hours if symptoms persist. Max dose 2 tablets in 24 hours. acetaminophen 325 mg tablet See Rx Instructions .ROUTE .COMPLEX Qty: 60 0RF Dose Instruction: TAKE ONE TABLET BY MOUTH FOUR TIMES A DAY NEEDED FOR PAIN Rx Instructions: TAKE ONE TABLET BY MOUTH FOUR TIMES A DAY NEEDED FOR PAIN albuterol sulfate [Ventolin HFA] 90 mcg/actuation HFA aerosol inhaler See Rx Instructions .ROUTE .COMPLEX Qty: 18 0RF Dose Instruction: INHALE 1 PUFF BY MOUTH EVERY 4 TO 6 HOURS NEEDED FOR SHORTNESS OF BREATH OR WHEEZING Rx Instructions: INHALE 1 PUFF BY MOUTH EVERY 4 TO 6 HOURS NEEDED FOR SHORTNESS OF BREATH OR WHEEZING budesonide-formoterol 80-4.5 mcg/actuation HFA aerosol inhaler 2 puff INHALATION BID Qty: 10.2 0RF methocarbamol 500 mg tablet 500 mg PO TID (DME) Blood Glucose Test Strip See Rx Instructions .ROUTE .MEDSUPPLY Rx Instructions: As directed (DME) blood-glucose meter [Blood Glucose Monitoring] Kit See Rx Instructions .ROUTE .MEDSUPPLY Rx Instructions: As directed propranolol 80 mg capsule,extended release 24hr See Rx Instructions .ROUTE .COMPLEX Rx Instructions: TAKE ONE CAPSULE BY MOUTH ONCE A DAY (DME) lancets [Droplet Lancets] 30 gauge misc See Rx Instructions .ROUTE .MEDSUPPLY Rx Instructions: As directed Referrals Follow up/Referrals: Provider,Referral, [Primary Care Provider] - See instructions Activity Restrictions/Add. Instructions Additional Instructions/Restrictions: You were evaluated in the emergency department today. Take Tylenol and ibuprofen at home as needed for pain. Follow-up with your primary care provider for reassessment. You do have incidental finding of pulmonary nodules on your CT scan, which you will need to follow-up with her primary care provider for further evaluation of. Clinical Impressions Clinical Impression: Chest wall contusion, Contusion of hip, left, Incidental pulmonary nodule Stand Alone Forms Stand Alone Forms: Work/School Release Instructions Patient Instructions: DI for Contusion Discharge ED Provider: Sherry Nuñez General Adult HPI General Chief complaint: Back Pain/Injury Stated complaint: pain from pizza cart falling on him hip-shoulder Time Seen by Provider: 04/02/23 23:10 Mode of Arrival: EMS Limitations: No Limitations Description of Symptoms (Recalled from ER Triage Doc. by RN): Pt states he was working at [employer] last night when around 2129, he slipped on the wet floor, fell face first onto the ground, and a cart of pizza dough fell on his back. Pt now c/o Left flank, L shoulder, and L hip pain. Pt reports limited ROM. Pt moving all extremities, GCS 15, sensation intact, no visible injuries noted, pt able to ambuliate upon arrival from ems stretcher to our stretcher. Pt also reports chronic back abi
--- NOTE | 2023-04-03 01:33 | PC.NURSE ---
Pt asleep at this time.
[2023-04-03 01:55] VITALS: BP 112/76; PULSE 76; RESP 18; TEMP 36.8; O2SAT 98
== END 2023-04-03 02:01 | disposition home or self-care (01) ==
PROVIDERS: Emergency Provider Emergency Medicine
DX: S20.219A Contusion of unspecified front wall of thorax, initial encounter (principal); S70.02XA Contusion of left hip, initial encounter; R91.1 Solitary pulmonary nodule; M25.512 Pain in left shoulder; F17.210 Nicotine dependence, cigarettes, uncomplicated; J44.9 Chronic obstructive pulmonary disease, unspecified; E78.5 Hyperlipidemia, unspecified; E03.9 Hypothyroidism, unspecified; I10 Essential (primary) hypertension; E11.9 Type 2 diabetes mellitus without complications; W20.8XXA Other cause of strike by thrown, projected or falling object, initial encounter
CPT/HCPCS: 71275; 72125; 72128; 72131; 72192; 73030; 74174; 80053; 85025; 96374; 99285; J0131; Q9967

== ENCOUNTER 2023-04-06 11:18 | Emergency (ER) | payer OTHER, SELFPAY ==
[2023-04-06 11:20] VITALS: BP 112/78; PULSE 64; RESP 20; TEMP 36.4; O2SAT 100; BMI 24.4
--- NOTE | 2023-04-06 12:10 | XR_ITS ---
FINAL REPORT CLINICAL HISTORY: L chest wall pain COMPARISON: 01/29/2023 FINDINGS: Two views of the chest were obtained. The heart size and pulmonary vascularity are within normal limits. The mediastinum is normal. No acute pulmonary abnormality is identified. There is no pneumothorax. The bony thorax is intact. IMPRESSION: No active cardiopulmonary disease. Reviewed, Interpreted and Dictated by Marcelo Maddox III, MD Transcribed by Deanne Elder Authenticated and [facility]
[2023-04-06 12:41] VITALS: BP 107/64; PULSE 57; RESP 16
--- NOTE | 2023-04-06 12:53 | HMH.EDGENADL ---
Discharge Plan Disposition Patient Disposition: Home, Self-Care Condition: Good Prescriptions Prescriptions: New lidocaine [Lidoderm] 5 % adhesive patch,medicated 1 patch topical DAILY Qty: 15 0RF Rx Instructions: leave on most painful area for up to 12 hrs methocarbamol 750 mg tablet 750 mg PO Q8H PRN (Reason: pain) Qty: 20 0RF No Action quetiapine 100 mg tablet 100 mg PO HS Qty: 90 1RF pantoprazole [Protonix] 40 mg tablet,delayed release (DR/EC) 40 mg PO DAILY Qty: 90 1RF atorvastatin 20 mg tablet 20 mg PO HS Qty: 90 1RF acetaminophen-codeine 300-30 mg tablet 1 tab PO TID PRN (Reason: pain) Qty: 60 1RF mupirocin 2 % ointment 1 applic topical BID Qty: 22 0RF cyclobenzaprine 10 mg tablet 10 mg PO TID PRN (Reason: muscle spasm) Qty: 60 0RF bisacodyl 5 mg tablet,delayed release (DR/EC) 5 mg PO DAILY [place] Saline 0.65 % aerosol,spray 2 spray intranasal Q4H PRN (Reason: nasal congestion) Qty: 50 2RF Ajovy Autoinjector 225 mg/1.5 mL auto-injector 225 mg SQ QMONTH Qty: 1.5 2RF Rx Instructions: First injection to be given in office for training/education purposes Ubrelvy 100 mg tablet 100 mg PO ONCE PRN (Reason: Migraine) Qty: 10 2RF Rx Instructions: Take 1 tablet at onset of headache. May repeat 1 tablet after 2 hours if symptoms persist. Max dose 2 tablets in 24 hours. acetaminophen 325 mg tablet See Rx Instructions .ROUTE .COMPLEX Qty: 60 0RF Dose Instruction: TAKE ONE TABLET BY MOUTH FOUR TIMES A DAY NEEDED FOR PAIN Rx Instructions: TAKE ONE TABLET BY MOUTH FOUR TIMES A DAY NEEDED FOR PAIN albuterol sulfate [Ventolin HFA] 90 mcg/actuation HFA aerosol inhaler See Rx Instructions .ROUTE .COMPLEX Qty: 18 0RF Dose Instruction: INHALE 1 PUFF BY MOUTH EVERY 4 TO 6 HOURS NEEDED FOR SHORTNESS OF BREATH OR WHEEZING Rx Instructions: INHALE 1 PUFF BY MOUTH EVERY 4 TO 6 HOURS NEEDED FOR SHORTNESS OF BREATH OR WHEEZING budesonide-formoterol 80-4.5 mcg/actuation HFA aerosol inhaler 2 puff INHALATION BID Qty: 10.2 0RF methocarbamol 500 mg tablet 500 mg PO TID (DME) Blood Glucose Test Strip See Rx Instructions .ROUTE .MEDSUPPLY Rx Instructions: As directed (DME) blood-glucose meter [Blood Glucose Monitoring] Kit See Rx Instructions .ROUTE .MEDSUPPLY Rx Instructions: As directed propranolol 80 mg capsule,extended release 24hr See Rx Instructions .ROUTE .COMPLEX Rx Instructions: TAKE ONE CAPSULE BY MOUTH ONCE A DAY (DME) lancets [Droplet Lancets] 30 gauge misc See Rx Instructions .ROUTE .MEDSUPPLY Rx Instructions: As directed Referrals Follow up/Referrals: Vaibhav Lamb APRN [Primary Care Provider] - See instructions Clinical Impressions Clinical Impression: Contusion of left chest wall Stand Alone Forms Stand Alone Forms: Work/School Release Instructions Patient Instructions: DI for Acute Pain -- Adult Discharge ED Provider: Sherry Nuñez General Adult HPI General Chief complaint: PAIN Stated complaint: [id number] Lt side pain Time Seen by Provider: 04/06/23 12:10 Mode of Arrival: Ambulatory Source of Information: Patient Limitations: No Limitations Description of Symptoms (Recalled from ER Triage Doc. by RN): pt to ed c/o left sided rib pain. pt states he fell at work last night and is having pain. History of Present Illness HPI narrative: This patient is a 37-year-old male with a history of anxiety, bipolar disorder, hypertension, hyperlipidemia, depression, and hypothyroidism presented to the emergency department for evaluation of left rib/chest wall pain. Patient was evaluated here 04/02/2023 by myself after a cart fell on him at work. No traumatic injuries were found on CT scans of the spines, chest, abdomen, or pelvis at that time. Patient was deemed to be appropriate for discharge. He states that since
[2023-04-06 13:59] VITALS: BP 107/67; PULSE 69; O2SAT 99
--- NOTE | 2023-04-06 14:00 | PC.NURSE ---
Rounded on pt. Pt advised he is still in pain. Dr. Nuñez made aware.
[2023-04-06 14:59] VITALS: BP 112/71; PULSE 70; RESP 16; TEMP 36.4; O2SAT 98
--- NOTE | 2023-04-08 12:03 | PC.NURSE ---
accessed chart to print work excuse
== END 2023-04-06 15:00 | disposition home or self-care (01) ==
PROVIDERS: Emergency Provider Emergency Medicine; PCP Nurse Practitioner Family
DX: S20.212A Contusion of left front wall of thorax, initial encounter (principal); I10 Essential (primary) hypertension; E78.5 Hyperlipidemia, unspecified; E03.9 Hypothyroidism, unspecified; J44.9 Chronic obstructive pulmonary disease, unspecified; E11.9 Type 2 diabetes mellitus without complications; F20.9 Schizophrenia, unspecified; W20.8XXA Other cause of strike by thrown, projected or falling object, initial encounter
CPT/HCPCS: 71046; 99283

== ENCOUNTER → 2023-04-23 09:41 | Outpatient (CLI) | payer OTHER, SELFPAY ==
[2023-04-23 17:42] LABS: Adenovirus,PCR Not Detected (NotDetected); Coronavirus 19, PCR Not Detected (NotDetected); Coronavirus 229E Not Detected (NotDetected); Coronavirus NL63 Not Detected (NotDetected); Coronavirus OC43 Not Detected (NotDetected); Coronovirus HKU1,PCR Not Detected (NotDetected); Human Metapneumovirus Not Detected (NotDetected); Influenza A, PCR Not Detected (NotDetected); Influenza AH1, 2009 Not Detected (NotDetected); Influenza AH1, PCR Not Detected (NotDetected); Influenza AH3,PCR Not Detected (NotDetected); Influenza B, PCR Not Detected (NotDetected); Parainfluenza 1, PCR Not Detected (NotDetected); Parainfluenza 2, PCR Not Detected (NotDetected); Parainfluenza 3, PCR Not Detected (NotDetected); Parainfluenza 4, PCR Not Detected (NotDetected); Respiratory Syncytial Virus Not Detected (NotDetected); Rhinovirus/Enterovirus Not Detected (NotDetected)
[2023-04-23 18:19] LABS: Monoscreen (Rapid) Negative (Negative)
== END ==
LOC: LAB.DROPOF 04-24 09:42
PROVIDERS: PCP Nurse Practitioner Family; Visit Provider Student in an Organized Health Care Education/Training Program
DX: J02.9 Acute pharyngitis, unspecified (principal); B95.1 Streptococcus, group B, as the cause of diseases classified elsewhere; R10.9 Unspecified abdominal pain; R05.9 Cough, unspecified; R09.89 Other specified symptoms and signs involving the circulatory and respiratory systems
CPT/HCPCS: 86318; 87070; 87581; 87632; 87635; 87798

== ENCOUNTER 2023-05-11 13:24 | Emergency (ER) | payer OTHER, SELFPAY ==
[2023-05-11 13:30] VITALS: BP 125/80; PULSE 62; RESP 18; TEMP 36.6; O2SAT 100; BMI 23.7
--- NOTE | 2023-05-11 13:44 | EXP.UTC ---
Discharge Plan Disposition Patient Disposition: Home, Self-Care Condition: Good Prescriptions Prescriptions: New ondansetron 4 mg Tablet,Disintegrating 4 mg PO Q8H PRN (Reason: Nausea) Qty: 12 0RF No Action quetiapine 100 mg tablet 100 mg PO HS Qty: 90 1RF pantoprazole [Protonix] 40 mg tablet,delayed release (DR/EC) 40 mg PO DAILY Qty: 90 1RF atorvastatin 20 mg tablet 20 mg PO HS Qty: 90 1RF acetaminophen-codeine 300-30 mg tablet 1 tab PO TID PRN (Reason: pain) Qty: 60 1RF mupirocin 2 % ointment 1 applic topical BID Qty: 22 0RF qqduuhsdqykpruv-feimvhtzs-FA [Bromfed DM] 2-30-10 mg/5 mL syrup 5 ml PO Q4-6H PRN (Reason: cold symptoms) Qty: 118 0RF guaifenesin 600 mg tablet extended release 12hr 600 mg PO Q12H PRN (Reason: congestion) Qty: 14 0RF cyclobenzaprine 10 mg tablet 10 mg PO TID PRN (Reason: muscle spasm) Qty: 60 0RF bisacodyl 5 mg tablet,delayed release (DR/EC) 5 mg PO DAILY [place] Saline 0.65 % aerosol,spray 2 spray intranasal Q4H PRN (Reason: nasal congestion) Qty: 50 2RF Ajovy Autoinjector 225 mg/1.5 mL auto-injector 225 mg SQ QMONTH Qty: 1.5 2RF Rx Instructions: First injection to be given in office for training/education purposes naproxen 500 mg tablet 500 mg PO BID Qty: 30 0RF lidocaine [Lidoderm] 5 % adhesive patch,medicated 1 patch topical DAILY Qty: 15 0RF Rx Instructions: leave on most painful area for up to 12 hrs acetaminophen 325 mg tablet See Rx Instructions .ROUTE .COMPLEX Qty: 60 0RF Dose Instruction: TAKE ONE TABLET BY MOUTH FOUR TIMES A DAY NEEDED FOR PAIN Rx Instructions: TAKE ONE TABLET BY MOUTH FOUR TIMES A DAY NEEDED FOR PAIN albuterol sulfate [Ventolin HFA] 90 mcg/actuation HFA aerosol inhaler See Rx Instructions .ROUTE .COMPLEX Qty: 18 0RF Dose Instruction: INHALE 1 PUFF BY MOUTH EVERY 4 TO 6 HOURS NEEDED FOR SHORTNESS OF BREATH OR WHEEZING Rx Instructions: INHALE 1 PUFF BY MOUTH EVERY 4 TO 6 HOURS NEEDED FOR SHORTNESS OF BREATH OR WHEEZING budesonide-formoterol 80-4.5 mcg/actuation HFA aerosol inhaler 2 puff INHALATION BID Qty: 10.2 0RF azithromycin [Zithromax Z-Dariel] 250 mg tablet See Rx Instructions PO .COMPLEX Qty: 6 0RF Rx Instructions: For 250 mg dose pack: take 500 mg today (day 1), then 250 mg for 4 days (days 2-5) PO Ubrelvy 100 mg tablet See Rx Instructions .ROUTE .COMPLEX Qty: 10 0RF Dose Instruction: TAKE 1 TABLET BY MOUTH AT ONSET OF MIGRAINE, THEN MAY REPEAT 1 TIME IN 2 HOURS IF NO RELIEF. MAX OF 2 IN 24 HOURS. Rx Instructions: TAKE 1 TABLET BY MOUTH AT ONSET OF MIGRAINE, THEN MAY REPEAT 1 TIME IN 2 HOURS IF NO RELIEF. MAX OF 2 IN 24 HOURS. propranolol 80 mg capsule,extended release 24 hr See Rx Instructions .ROUTE .COMPLEX Qty: 30 0RF Dose Instruction: TAKE ONE CAPSULE BY MOUTH ONCE A DAY Rx Instructions: TAKE ONE CAPSULE BY MOUTH ONCE A DAY fluticasone propionate [Flonase Allergy Relief] 50 mcg/actuation spray,suspension 2 spray intranasal DAILY Qty: 16 4RF Rx Instructions: administer into each nostril methocarbamol 500 mg tablet 500 mg PO TID (DME) Blood Glucose Test Strip See Rx Instructions .ROUTE .MEDSUPPLY Rx Instructions: As directed (DME) blood-glucose meter [Blood Glucose Monitoring] Kit See Rx Instructions .ROUTE .MEDSUPPLY Rx Instructions: As directed (DME) lancets [Droplet Lancets] 30 gauge misc See Rx Instructions .ROUTE .MEDSUPPLY Rx Instructions: As directed methocarbamol 750 mg tablet 750 mg PO Q8H PRN (Reason: pain) Qty: 20 0RF Referrals Follow up/Referrals: Vaibhav Lamb APRN [Primary Care Provider] - See instructions Activity Restrictions/Add. Instructions Additional Instructions/Restrictions: Drink plenty of fluids. Take tylenol or ibuprofen for pain or fever. Take the medications as directed. Follow up with your regular doctor. GO TO THE ER FOR ANY WORSENING SYMPTOMS Clinical Impressions Clinical Impression: Acute viral syndrome Stand Alone Forms Stand Alone Forms: Work/School Release Instructions Patient Instructions: DI for Viral Syndrome Discharge ED Provider: Higinio Knight [facility] [place] HPI General Stated complaint: covid exposure, diarrea, vomiting Time Seen by Provider: 05/11/23 13:44 History of Present Illness Provider Complaint: He states that he has had fever, chills, body aches, malaise and a cough for the past 3 days. He has been exposed to covid-19. Related Data Home Medications Medication Instructions Recorded Confirmed bisacodyl 5 mg tablet,delayed 5 mg PO DAILY bowels 09/17/22 04/23/23 release blood sugar diagnostic (Blood 09/23/22 04/23/23 Glucose Test strips) blood-glucose meter (Blood Glucose 09/23/22 04/23/23 Monitoring kit) lancets 30 gauge (Droplet Lancets) 09/23/22 04/23/23 methocarbamol 500 mg tablet 500 mg PO TID Pain 09/23/22 04/23/23 Previous Rx's Medication Instructions Recorded cyclobenzaprine 10 mg tablet 10 mg PO TID PRN muscle spasm #60 04/10/22 tabs sodium chloride 0.65 % nasal spray 2 spray intranasal Q4H PRN nasal 11/24/22 aerosol ([place] Saline) congestion #50 mL atorvastatin 20 mg tablet 20 mg PO HS Cholesterol #90 tabs 12/04/22 pantoprazole 40 mg tablet,delayed 40 mg PO DAILY gerd #90 tabs 12/04/22 release (Protonix) quetiapine 100 mg tablet 100 mg PO HS . #90 tabs 12/04/22 fremanezumab-vfrm 225 mg/1.5 mL 225 mg (1.5 mL) SQ QMONTH headache 01/02/23 subcutaneous auto-injector (Ajovy) prevention #1.5 mL acetaminophen 325 mg tablet See Rx Instructions .Route 02/12/23 .COMPLEX #60 tabs albuterol sulfate 90 mcg/actuation See Rx Instructions .Route 02/12/23 aerosol inhaler (Ventolin HFA) .COMPLEX #18 grams budesonide-formoterol HFA 80 2 puff inhalation BID . #10.2 grams 02/12/23 mcg-4.5 mcg/actuation aerosol inhaler acetaminophen 300 mg-codeine 30 mg 1 tab PO TID PRN pain #60 tabs 03/13/23 tablet mupirocin 2 % topical ointment 1 applic topical BID #22 grams 03/13/23 methocarbamol 750 mg tablet 750 mg PO Q8H PRN pain #20 tabs 04/06/23 lidocaine 5 % topical patch 1 patch topical DAILY #15 ea 04/10/23 (Lidoderm) naproxen 500 mg tablet 500 mg PO BID #30 tabs 04/10/23 hmnehhvvlkbdmdz-bakcedqxlwesbkt-MI 5 ml PO Q4-6H PRN cold symptoms 04/23/23 2 mg-30 mg-10 mg/5 mL oral syrup #118 mL (Bromfed DM) guaifenesin 600 mg tablet, 600 mg PO Q12H PRN congestion #14 04/23/23 extended release 12 hr tabs azithromycin 250 mg tablet See Rx Instructions PO .COMPLEX #6 04/24/23 (Zithromax Z-Dariel) tabs propranolol 80 mg capsule,24 See Rx Instructions .Route 05/08/23 hr,extended release .COMPLEX #30 caps ubrogepant 100 mg tablet (Ubrelvy) See Rx Instructions .Route 05/08/23 .COMPLEX #10 tabs fluticasone propionate 50 2 spray intranasal DAILY #16 grams 05/11/23 mcg/actuation nasal spray,suspension (Flonase Allergy Relief) ondansetron 4 mg disintegrating 4 mg PO Q8H PRN Nausea #12 tabs 05/11/23 tablet Allergies Allergy/AdvReac Type Severity Reaction Status Date / Time aspirin [ASPIRIN] Allergy Intermediate I-ITCHING Verified 05/11/23 14:07 ibuprofen [IBUPROFEN] Allergy Intermediate I-RASH Verified 05/11/23 14:07 ketorolac [From TORADOL] Allergy Intermediate I-RASH Verified 05/11/23 14:07 latex [LATEX] Allergy Intermediate I-RASH Verified 05/11/23 14:07 naproxen [NAPROXEN] Allergy Intermediate I-RASH Verified 05/11/23 14:07 tramadol [TRAMADOL] Allergy Intermediate I-ITCHING Verified 05/11/23 14:07 Penicillins [PENICILLINS] Allergy Unknown Verified 05/11/23 14:[address] [facility] Disclaimer: The information contained in this section may have been updated after the patient was seen, as this information can be updated by other users. Medical History Anxiety Asthma Bipolar 1 disorder COPD (chronic obstructive pulmonary disease) Depression HTN (hypertension) Hyperlipidemia Hypothyroidism Knuckle pad of multiple sites Schizophrenic disorder Seizures T2DM (type 2 diabetes mellitus) Surgical History History of hip surgery History of surgery on lower extremity Status post nasal surgery Family History Other Asthma FHx: mental illness Family history of diabetes mellitus Heart attack Hypertension Kidney disease Stroke Social History Smoking Status: Never smoker second hand exposure: Yes alcohol intake: current substance use type: denies use current occupational status: employed Travel in the last 8 weeks: None household members: spouse housing: house marital status: number of children: 0 caffeine: Yes ROS Obtained: Yes All systems reviewed & no additional complaints except as documented Constitutional Constitutional: Reports chills and Reports fever(s) Eyes Eyes: Denies eye discharge ENT Ears, Nose, Mouth, and Throat: Reports as per HPI Cardiovascular Cardiovascular: Denies chest pain Respiratory Respiratory: Denies chest congestion and Reports cough Gastrointestinal Gastrointestingal: Reports nausea; Denies abdominal pain, constipation, cramping, diarrhea or vomiting Musculoskeletal Musculoskeletal: Denies arthralgias Integumentary/Breasts Skin/Breast: Denies rash Neurologic Neurologic: Denies paresthesias Physical Exam General General appearance: alert and in no apparent distress Head Head exam: atraumatic, normocephalic and normal inspection Eye Eye exam: Present normal appearance, PERRL and EOMI ENT ENT exam: Present mucous membranes moist and normal external ear exam Expanded ENT Exam TM/Canal exam: Bilateral TM: erythema and bulging Nose exam: Absent sinus tenderness Mouth exam: Present normal external inspection; Absent drooling Teeth exam: Present normal inspection Throat exam: Present tonsillar erythema, tonsillomegaly and tonsillar exudate Neck Neck exam: Present normal inspection, full ROM and trachea midline; Absent tenderness, meningismus or lymphadenopathy Chest Chest inspection: Present normal inspection and symmetric chest wall rise; Absent tenderness Respiratory Respiratory exam: Present normal lung sounds bilaterally; Absent respiratory distress, wheezes, stridor or accessory muscle use Cardiovascular Cardiovascular exam: Present regular rate and normal rhythm; Absent systolic murmur or diastolic murmur Abdominal Exam Abdominal exam: Present soft and normal bowel sounds; Absent distention, tenderness, guarding, rebound or rigidity Extremities Exam Extremities exam: Present normal inspection and normal capillary refill; Absent calf tenderness Back Exam Back exam: Present normal inspection and full ROM; Absent tenderness, CVA tenderness (R) or CVA tenderness (L) Neurological Exam Neurological exam: Present alert, oriented X3 and CN II-XII intact Psychiatric Psychiatric exam: Present normal affect and normal mood Skin Skin exam: Present warm, dry, intact and normal color Medical Decision Making Medical Records Medical records reviewed: No I reviewed the patient's medical records. Nael Inquiry Pt receiving controlled substance: No Lab Data Lab results reviewed: Yes I reviewed the patient's lab results. Orders (Tests/Meds): ORDERS Category Date Time Status Covid-19 Nasal PCR ([facility]) Routine Lab 05/11/23 13:37 Ordered
[2023-05-11 14:28] VITALS: BP 125/80; PULSE 62; RESP 18; TEMP 36.6; O2SAT 100
== END 2023-05-11 14:28 | disposition home or self-care (01) ==
PROVIDERS: Emergency Provider Nurse Practitioner Family; PCP Nurse Practitioner Family
DX: R11.2 Nausea with vomiting, unspecified (principal); R19.7 Diarrhea, unspecified; R50.9 Fever, unspecified; R53.81 Other malaise; M79.18 Myalgia, other site; Z20.822 Contact with and (suspected) exposure to COVID-19; J45.909 Unspecified asthma, uncomplicated; E03.9 Hypothyroidism, unspecified; E78.5 Hyperlipidemia, unspecified; B34.9 Viral infection, unspecified
CPT/HCPCS: 87635; 99212; 99214; G0463

== ENCOUNTER 2023-05-28 20:41 | Emergency (ER) | payer OTHER, SELFPAY ==
[2023-05-28 20:42] VITALS: BP 117/82; PULSE 83; RESP 18; TEMP 36.7; O2SAT 95; BMI 25.0
--- NOTE | 2023-05-28 21:03 | HMH.EDGENADL ---
Discharge Plan Disposition Patient Disposition: Home, Self-Care Condition: Good Prescriptions Prescriptions: New acetaminophen 500 mg tablet 500 mg PO Q4H PRN (Reason: pain) Qty: 20 0RF ibuprofen 600 mg tablet 600 mg PO Q8H PRN (Reason: pain) Qty: 20 0RF No Action quetiapine 100 mg tablet 100 mg PO HS Qty: 90 1RF pantoprazole [Protonix] 40 mg tablet,delayed release (DR/EC) 40 mg PO DAILY Qty: 90 1RF atorvastatin 20 mg tablet 20 mg PO HS Qty: 90 1RF acetaminophen-codeine 300-30 mg tablet 1 tab PO TID PRN (Reason: pain) Qty: 60 1RF mupirocin 2 % ointment 1 applic topical BID Qty: 22 0RF knxnndppvjnhrtm-galarhrbz-BG [Bromfed DM] 2-30-10 mg/5 mL syrup 5 ml PO Q4-6H PRN (Reason: cold symptoms) Qty: 118 0RF guaifenesin 600 mg tablet extended release 12hr 600 mg PO Q12H PRN (Reason: congestion) Qty: 14 0RF cyclobenzaprine 10 mg tablet 10 mg PO TID PRN (Reason: muscle spasm) Qty: 60 0RF bisacodyl 5 mg tablet,delayed release (DR/EC) 5 mg PO DAILY [place] Saline 0.65 % aerosol,spray 2 spray intranasal Q4H PRN (Reason: nasal congestion) Qty: 50 2RF Ajovy Autoinjector 225 mg/1.5 mL auto-injector 225 mg SQ QMONTH Qty: 1.5 2RF Rx Instructions: First injection to be given in office for training/education purposes naproxen 500 mg tablet 500 mg PO BID Qty: 30 0RF lidocaine [Lidoderm] 5 % adhesive patch,medicated 1 patch topical DAILY Qty: 15 0RF Rx Instructions: leave on most painful area for up to 12 hrs acetaminophen 325 mg tablet See Rx Instructions .ROUTE .COMPLEX Qty: 60 0RF Dose Instruction: TAKE ONE TABLET BY MOUTH FOUR TIMES A DAY NEEDED FOR PAIN Rx Instructions: TAKE ONE TABLET BY MOUTH FOUR TIMES A DAY NEEDED FOR PAIN albuterol sulfate [Ventolin HFA] 90 mcg/actuation HFA aerosol inhaler See Rx Instructions .ROUTE .COMPLEX Qty: 18 0RF Dose Instruction: INHALE 1 PUFF BY MOUTH EVERY 4 TO 6 HOURS NEEDED FOR SHORTNESS OF BREATH OR WHEEZING Rx Instructions: INHALE 1 PUFF BY MOUTH EVERY 4 TO 6 HOURS NEEDED FOR SHORTNESS OF BREATH OR WHEEZING budesonide-formoterol 80-4.5 mcg/actuation HFA aerosol inhaler 2 puff INHALATION BID Qty: 10.2 0RF azithromycin [Zithromax Z-Dariel] 250 mg tablet See Rx Instructions PO .COMPLEX Qty: 6 0RF Rx Instructions: For 250 mg dose pack: take 500 mg today (day 1), then 250 mg for 4 days (days 2-5) PO Ubrelvy 100 mg tablet See Rx Instructions .ROUTE .COMPLEX Qty: 10 0RF Dose Instruction: TAKE 1 TABLET BY MOUTH AT ONSET OF MIGRAINE, THEN MAY REPEAT 1 TIME IN 2 HOURS IF NO RELIEF. MAX OF 2 IN 24 HOURS. Rx Instructions: TAKE 1 TABLET BY MOUTH AT ONSET OF MIGRAINE, THEN MAY REPEAT 1 TIME IN 2 HOURS IF NO RELIEF. MAX OF 2 IN 24 HOURS. propranolol 80 mg capsule,extended release 24 hr See Rx Instructions .ROUTE .COMPLEX Qty: 30 0RF Dose Instruction: TAKE ONE CAPSULE BY MOUTH ONCE A DAY Rx Instructions: TAKE ONE CAPSULE BY MOUTH ONCE A DAY fluticasone propionate [Flonase Allergy Relief] 50 mcg/actuation spray,suspension 2 spray intranasal DAILY Qty: 16 4RF Rx Instructions: administer into each nostril methocarbamol 500 mg tablet 500 mg PO TID (DME) Blood Glucose Test Strip See Rx Instructions .ROUTE .MEDSUPPLY Rx Instructions: As directed (DME) blood-glucose meter [Blood Glucose Monitoring] Kit See Rx Instructions .ROUTE .MEDSUPPLY Rx Instructions: As directed (DME) lancets [Droplet Lancets] 30 gauge misc See Rx Instructions .ROUTE .MEDSUPPLY Rx Instructions: As directed ondansetron 4 mg Tablet,Disintegrating 4 mg PO Q8H PRN (Reason: Nausea) Qty: 12 0RF methocarbamol 750 mg tablet 750 mg PO Q8H PRN (Reason: pain) Qty: 20 0RF Referrals Follow up/Referrals: Vaibhav Lamb APRN [Primary Care Provider] - See instructions Activity Restrictions/Add. Instructions Additional Instructions/Restrictions: You were evaluated in the emergency department today. Please follow-up with your dentist as soon as possible. 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 Return to the emergency department for new or worsening symptoms. Clinical Impressions Clinical Impression: Visit for suture removal, Post-op pain Instructions Patient Instructions: DI for Dental Pain Discharge ED Provider: Sherry Nuñez General Adult HPI General Chief complaint: Dental/Oral Stated complaint: dental pain Time Seen by Provider: 05/28/23 20:47 Mode of Arrival: Ambulatory Source of Information: Patient Limitations: No Limitations Description of Symptoms (Recalled from ER Triage Doc. by RN): patient reports had some molars on his left side removed 2.5 weeks ago. States that today one of the stitches is so high that it's getting caught and causing problems with him eating. Patient is requesting the stitch removed. History of Present Illness HPI narrative: This patient is a 37-year-old male presenting to the emergency department for evaluation with concern for suture issues in the left side of his mouth. He states that the stitches are sticking out so high that it is getting caught when he tries to eat. He is requesting to get the stitches removed. He denies any fevers, chills, swelling, or other concerns. He states he was supposed to follow-up to have it removed previously but missed the appointment because of the weather. He is not to be seen by his dentist until 06/01, and he did not want to wait until then for suture removal. He was taking ibuprofen at home for improvement of the pain but he ran out. He is requesting pain medication at this time. Related Data Home Medications Medication Instructions Recorded Confirmed bisacodyl 5 mg tablet,delayed 5 mg PO DAILY bowels 09/17/22 04/23/23 release blood sugar diagnostic (Blood 09/23/22 04/23/23 Glucose Test strips) blood-glucose meter (Blood Glucose 09/23/22 04/23/23 Monitoring kit) lancets 30 gauge (Droplet Lancets) 09/23/22 04/23/23 methocarbamol 500 mg tablet 500 mg PO TID Pain 09/23/22 04/23/23 Previous Rx's Medication Instructions Recorded cyclobenzaprine 10 mg tablet 10 mg PO TID PRN muscle spasm #60 04/10/22 tabs sodium chloride 0.65 % nasal spray 2 spray intranasal Q4H PRN nasal 11/24/22 aerosol ([place] Saline) congestion #50 mL atorvastatin 20 mg tablet 20 mg PO HS Cholesterol #90 tabs 12/04/22 pantoprazole 40 mg tablet,delayed 40 mg PO DAILY gerd #90 tabs 12/04/22 release (Protonix) quetiapine 100 mg tablet 100 mg PO HS . #90 tabs 12/04/22 fremanezumab-vfrm 225 mg/1.5 mL 225 mg (1.5 mL) SQ QMONTH headache 01/02/23 subcutaneous auto-injector (Ajovy) prevention #1.5 mL acetaminophen 325 mg tablet See Rx Instructions .Route 02/12/23 .COMPLEX #60 tabs albuterol sulfate 90 mcg/actuation See Rx Instructions .Route 02/12/23 aerosol inhaler (Ventolin HFA) .COMPLEX #18 grams budesonide-formoterol HFA 80 2 puff inhalation BID . #10.2 grams 02/12/23 mcg-4.5 mcg/actuation aerosol inhaler acetaminophen 300 mg-codeine 30 mg 1 tab PO TID PRN pain #60 tabs 03/13/23 tablet mupirocin 2 % topical ointment 1 applic topical BID #22 grams 03/13/23 methocarbamol 750 mg tablet 750 mg PO Q8H PRN pain #20 tabs 04/06/23 lidocaine 5 % topical patch 1 patch topical DAILY #15 ea 04/10/23 (Lidoderm) naproxen 500 mg tablet 500 mg PO BID #30 tabs 04/10/23 mgrofcvfxzckavl-godosmazxlskhhn-UD 5 ml PO Q4-6H PRN cold symptoms 04/23/23 2 mg-30 mg-10 mg/5 mL oral syrup #118 mL (Bromfed DM) guaifenesin 600 mg tablet, 600 mg PO Q12H PRN congestion #14 04/23/23 extended release 12 hr tabs azithromycin 250 mg tablet See Rx Instructions PO .COMPLEX #6 04/24/23 (Zithromax Z-Dariel) tabs propranolol 80 mg capsule,24 See Rx Instructions .Route 05/08/23 hr,extended release .COMPLEX #30 caps ubrogepant 100 mg tablet (Ubrelvy) See Rx Instructions .Route 05/08/23 .COMPLEX #10 tabs fluticasone propionate 50 2 spray intranasal DAILY #16 grams 05/11/23 mcg/actuation nasal spray,suspension (Flonase Allergy Relief) ondansetron 4 mg disintegrating 4 mg PO Q8H PRN Nausea #12 tabs 05/11/23 tablet acetaminophen 500 mg tablet 500 mg PO Q4H PRN pain #20 tabs 05/28/23 ibuprofen 600 mg tablet 600 mg PO Q8H PRN pain #20 tabs 05/28/23 Allergies Allergy/AdvReac Type Severity Reaction Status Date / Time aspirin [ASPIRIN] Allergy Intermediate I-ITCHING Verified 05/11/23 14:07 ibuprofen [IBUPROFEN] Allergy Intermediate I-RASH Verified 05/11/23 14:07 ketorolac [From TORADOL] Allergy Intermediate I-RASH Verified 05/11/23 14:07 latex [LATEX] Allergy Intermediate I-RASH Verified 05/11/23 14:07 naproxen [NAPROXEN] Allergy Intermediate I-RASH Verified 05/11/23 14:07 tramadol [TRAMADOL] Allergy Intermediate I-ITCHING Verified 05/11/23 14:07 Penicillins [PENICILLINS] Allergy Unknown Verified 05/11/23 14:07 PFSH [facility] Disclaimer: The information contained in this section may have been updated after the patient was seen, as this information can be updated by other users. Medical History Anxiety Asthma Bipolar 1 disorder COPD (chronic obstructive pulmonary disease) Depression HTN (hypertension) Hyperlipidemia Hypothyroidism Knuckle pad of multiple sites Schizophrenic disorder Seizures T2DM (type 2 diabetes mellitus) Surgical History History of hip surgery History of surgery on lower extremity Status post nasal surgery Family History Other Asthma FHx: mental illness Family history of diabetes mellitus Heart attack Hypertension Kidney disease Stroke Social History Smoking Status: Current some day smoker tobacco type: cigarettes packs per day: 1 second hand exposure: Yes alcohol intake: current substance use type: denies use current occupational status: employed Travel in the last 8 weeks: None household members: spouse housing: house marital status: number of children: 0 caffeine: Yes ROS Obtained: Yes All systems reviewed & no additional complaints except as documented Physical Exam General General appearance: alert and in no apparent distress Head Head exam: atraumatic and normocephalic Eye Eye exam: Present normal appearance, PERRL and EOMI ENT ENT exam: Present normal oropharynx, mucous membranes moist, normal external ear exam and other (Poor dentition throughout. Site of dental extraction on the left lower jaw is C/D/I with exposed suture material that is very loose. No swelling or purulence.) Neck Neck exam: Present normal inspection, full ROM and trachea midline; Absent tenderness Chest Chest inspection: Present normal inspection and symmetric chest wall rise; Absent tenderness Respiratory Respiratory exam: Present normal lung sounds bilaterally; Absent respiratory distress, wheezes, stridor or accessory muscle use Cardiovascular Cardiovascular exam: Present regular rate and normal rhythm Abdominal Exam Abdominal exam: Present soft; Absent distention, tenderness or guarding Extremities Exam Extremities exam: Present normal inspection, full ROM and normal capillary refill; Absent tenderness or edema Back Exam Back exam: Present normal inspection and full ROM; Absent tenderness Neurological Exam Neurological exam: Present alert, oriented X3, CN II-XII intact and normal gait; Absent motor sensory deficit Psychiatric Psychiatric exam: Present normal affect and normal mood Skin Skin exam: Present warm and dry Medical Decision Making Medical Records Medical records reviewed: Yes I reviewed the patient's medical records. Nael Inquiry Pt receiving controlled substance: No Vital Signs: 05/28/23 20:42 Temperature 98.1 F Temperature Source Oral Pulse Rate [Right Radial] 83 Respiratory Rate 18 Blood Pressure [Right Arm] 117/82 Blood Pressure Mean [Right Arm] 93 Blood Pressure Source [Right Arm] Automatic Cuff Blood Pressure Position [Right Arm] Sitting 02 Sat by Pulse Oximetry 95 Oxygen Delivery Method Room Air Lab Data Lab results reviewed: Yes I reviewed the patient's lab results. Orders (Tests/Meds): ED MEDICATIONS Generic Name Dose Route Start Last Admin Trade Name Freq PRN Reason Stop Dose Admin Acetaminophen 1,000 mg 05/28/23 20:58 Acetaminophen 500mg Tab PO 05/28/23 20:59 ONCE ONE Ibuprofen 800 mg 05/28/23 20:58 Ibuprofen 400 Mg Tablet PO 05/28/23 20:59 ONCE ONE Tetracycl/Hydrocort/Nystatin/Diphen 15 ml 05/28/23 20:59 Magic Mouthwash 300ml Bottle PO 05/28/23 21:00 ONCE ONE Medical Decision Narrative: In summary, this patient is a 37-year-old male presenting to the Emergency Department for evaluation of suture removal after a dental surgery. Differential diagnoses considered include but are not limited to postoperative infection, normal routine healing, postoperative pain. Ruling out the most morbid conditions drove assessment. On exam, the patient is well-appearing with no swelling, purulence, or other concerns that would be negative of infection. His sutures are very loose in some areas, so I removed the loose suture that was interfering with eating. He tolerated this well. Some sutures remain, for which I advised that he follow-up with his dentist. He was given strict return precautions as well as prescriptions for Tylenol and ibuprofen, as he states that he ran out. He was given Tylenol, ibuprofen, and Magic mouthwash here orally. He was discharged in stable condition after all questions were answered. Critical Care Critical Care Time Critical Care Time: No
[2023-05-28] MEDS: ACETAMINOPHEN 500MG TAB 1000 MG PO (21:12)
[2023-05-28] MEDS: IBUPROFEN 400 MG TABLET 800 MG PO (21:12)
[2023-05-28] MEDS: MAGIC MOUTHWASH 300ML BOTTLE 15 ML PO (21:13)
[2023-05-28 21:15] VITALS: BP 117/82; PULSE 83; RESP 18; TEMP 36.7; O2SAT 95
== END 2023-05-28 21:16 | disposition home or self-care (01) ==
PROVIDERS: Emergency Provider Emergency Medicine; PCP Nurse Practitioner Family
DX: G89.18 Other acute postprocedural pain (principal); G50.1 Atypical facial pain; J44.9 Chronic obstructive pulmonary disease, unspecified; I10 Essential (primary) hypertension; E78.5 Hyperlipidemia, unspecified; E03.9 Hypothyroidism, unspecified; F25.0 Schizoaffective disorder, bipolar type; E11.9 Type 2 diabetes mellitus without complications; F17.210 Nicotine dependence, cigarettes, uncomplicated
CPT/HCPCS: 99283

== ENCOUNTER 2023-06-19 14:57 | Outpatient (CLI) | payer OTHER, SELFPAY ==
--- NOTE | 2023-06-19 14:57 | MR_ITS ---
FINAL REPORT CLINICAL HISTORY: seizure COMPARISON: 11/26/2022 FINDINGS: Multiplanar MR imaging of the brain was performed without and with contrast. There is no evidence of intracranial hemorrhage or mass. No abnormal extra-axial fluid collection is seen. The ventricular size is within normal limits. There is no evidence of shift of the midline structures. The posterior fossa and brainstem have an unremarkable appearance. No area of abnormal restricted diffusion is identified. No abnormal contrast enhancement is seen. Normal major vessel vascular flow voids are noted. IMPRESSION: No acute intracranial abnormality identified. Reviewed, Interpreted and Dictated by Marcelo Maddox III, MD Transcribed by Deanne Elder Authenticated and [facility]
[2023-06-19 15:35] LABS: Alanine Aminotransferase 20 U/L (12-78); Albumin Level 4.4 g/dl (3.5-5.0); Albumin/Globulin Ratio 1.6 (1.1-1.8); Alkaline Phosphatase 75 U/L (38-126); Aspartate Amino Transferase 26 U/L (17-59); Basophils % 0.3 % (0.1-2.0); Bilirubin,Total 1.9 mg/dl (0.2-1.3); Blood Urea Nitrogen 9 mg/dl (9-20); Carbon Dioxide 30 mmol/L (22.0-30.0); Chloride 105 mmol/L (98-107); Eosinophils # 0.1 K/mm3 (0.0-0.4); Eosinophils % 3.1 % (0.1-12.0); Estimated Glomerular Filt Rate 95 ml/min (>60); GFR (African American) 116 ML/MIN (>60); Globulin 2.8 g/dL (1.3-3.2); Glucose 106 mg/dl (74-100); Hematocrit 45.9 % (42.0-52.0); Hemoglobin 16.3 g/dL (14.1-18.0); Lymphocytes # 1.9 K/mm3 (0.7-4.5); Lymphocytes % 39.2 % (10-50); Mean Corpuscular HGB Conc 35.4 g/dL (31.8-35.4); Mean Corpuscular Volume 98.8 fl (80-94); Mean Platelet Volume 7.5 fl (7.4-10.4); Monocytes # 0.3 K/mm3 (0.1-1.0); Monocytes % 6.9 % (1.7-9.3); Neutrophils # 2.4 K/mm3 (1.8-7.8); Neutrophils % 50.6 % (37.0-80.0); Platelet Count 265 K/mm3 (142-424); Red Blood Count 4.65 M/mm3 (4.60-6.20); Red Cell Distribution Width 13.2 % (11.5-17.5); Sodium 141 mmol/L (136-145); Total Protein,Serum 7.2 g/dl (6.3-8.2); White Blood Count 4.7 K/mm3 (4.8-10.8)
[2023-06-19] MEDS: SODIUM CHLORIDE 0.9% 10ML SYR (RAD ONLY) 10 ML IV (16:08)
[2023-06-19] MEDS: GADOTERIDOL INJ 17ML SYRINGE 15 ML IV (16:08)
[2023-06-19 16:26] LABS: Vitamin B12 390 pg/mL (239-931)
[2023-06-19 16:49] LABS: Folate 7.95 ng/mL
[2023-06-20 11:13] LABS: HBsAg Screen Negative (Negative); HCV Ab Non Reactive (Non Reactive); Hep A Ab, IGM Negative (Negative); Hep B Core Ab, IgM Negative (Negative); Rapid Plasma Reagin Ab Titer Non Reactive titer (NonRea<1:1)
[2023-06-23 10:16] LABS: Free Valproic Acid (Depakote) None Detected
[2023-06-25 23:11] LABS: Vitamin B1 129.4 nmol/L (66.5-200.0)
== END 2023-06-19 23:59 ==
LOC: RAD 14:57
PROVIDERS: PCP Nurse Practitioner Family; Visit Provider Nurse Practitioner Family
DX: G40.909 Epilepsy, unspecified, not intractable, without status epilepticus (principal); G93.40 Encephalopathy, unspecified; G43.009 Migraine without aura, not intractable, without status migrainosus; F39 Unspecified mood [affective] disorder; G47.9 Sleep disorder, unspecified; G89.29 Other chronic pain; H53.9 Unspecified visual disturbance; K02.9 Dental caries, unspecified; P84 Other problems with newborn; Z87.828 Personal history of other (healed) physical injury and trauma; Z91.148 Patient's other noncompliance with medication regimen for other reason; R17 Unspecified jaundice
CPT/HCPCS: 36415; 70553; 80053; 80074; 80165; 82607; 82746; 84425; 84443; 85025; 86593; A9576